=== PATIENT | female | born 1950 | race Caucasian/White ===

== ENCOUNTER → 2016-08-26 | Outpatient (CLI) | payer OTHER ==
[~2016-08-26] MED LIST: ASPI1TAB PO; ATOR1TAB21 PO; CALCTAB68 PO; CARV12.5 PO; COUM2.5T11 PO; GLIM2TAB PO; HYDR-3713 PO; LISI-538 PO; LORA10TA2 PO; METF-415 PO; MUPI2OI TOP; OMEP40CA2 PO; OSTETAB PO; PERC5TAB6 PO; SPIR25TA2 PO; TRAM50TA2 PO; VITA10002 PO; VITMTA PO; ZOFR20TA PO; ZOLP10TA2 PO
--- NOTE | 2016-08-26 13:46 | REPMRS ---
Patient History The patient states she has not had a clinical breast exam in over a year. Patient is postmenopausal. No known family history of cancer. Digital Woman Screen Mammo: August 26, 2016 - Exam #: [id number] Bilateral CC and MLO view(s) were taken. Technologist: Roxann Morales, Technologist Prior study comparison: August 12, 2015, digital woman screen mammo performed at [facility]. August 06, 2014, digital woman screen mammo performed at [facility]. September 12, 2013, digital woman screen mammo performed at [facility]. FINDINGS: There are scattered fibroglandular densities. There has been no change in the appearance of the mammogram from the prior studies. There is a mild amount of scattered fibroglandular density which is fairly symmetric. There is no interval development of dominant mass, architectural distortion, or clustered microcalcification suggestive of malignancy. ASSESSMENT: BI-RADS/ACR category 1 mammogram. Negative. Recommendation Routine screening mammogram in 1 year (for women over age 40). This mammogram was interpreted with the aid of an FDA-approved computer-aided dectection system. Electronically Signed By: Severiano Monroe MD 08/26/16 0714
== END ==
LOC: M WHC 12:53
PROVIDERS: ATTEND Family Medicine
DX: Z12.31 Encounter for screening mammogram for malignant neoplasm of breast (principal); Z78.0 Asymptomatic menopausal state

== ENCOUNTER → 2016-11-18 | Outpatient (REF) | payer OTHER ==
[2016-11-18 13:38] LABS: FREE T4 1.29 NG/DL (0.76-1.46); MAGNESIUM LEVEL 1.2 MG/DL (1.8-2.4); PERCENT SATURATION 15.7 % (13.2-37.4)
[2016-11-18 13:52] LABS: BASO % 0.5 % (0.0-1.0); EOS # 0.1 K/mm3 (0.0-0.50); EOS % 2.4 % (0.0-3.0); LARGE UNSTAINED CELL # 0.1 K/mm3 (0.0-0.4); LARGE UNSTAINED CELL % 2.1 % (0.0-4.0); LYMPH # 1.7 K/mm3 (1.5-4.5); LYMPH % 38.4 % (24.0-44.0); MEAN CORPUSCULAR HEMOGLOBIN 26.2 pg (27.0-33.0); MEAN CORPUSCULAR HGB CONC 32.3 g/dl (32.0-36.5); MEAN CORPUSCULAR VOLUME 81.2 fl (80.0-96.0); MONO # 0.2 K/mm3 (0.0-0.8); MONO % 5.2 % (0.0-5.0); NEUTROPHILS # 2.2 K/mm3 (1.8-7.7); NEUTROPHILS % 51.3 % (36.0-66.0); PLATELET COUNT, AUTOMATED 275 k/mm3 (150-450); RED CELL DISTRIBUTION WIDTH 13.2 % (11.5-14.5); WHITE BLOOD COUNT 4.3 K/mm3 (4.0-10.0)
== END ==
LOC: M SFHCPLAZ 10:59
PROVIDERS: ATTEND Family Medicine
DX: N18.3 Chronic kidney disease, stage 3 (moderate) (principal); E78.5 Hyperlipidemia, unspecified; E11.9 Type 2 diabetes mellitus without complications

== ENCOUNTER → 2016-12-09 | Outpatient (REF) | payer OTHER | LOC: M SFHCPLAZ 08:10 | PROVIDERS: ATTEND Family Medicine | DX: D50.9 Iron deficiency anemia, unspecified (principal); N18.3 Chronic kidney disease, stage 3 (moderate); E11.9 Type 2 diabetes mellitus without complications; Z53.8 Procedure and treatment not carried out for other reasons ==

== ENCOUNTER → 2017-04-14 | Outpatient (REF) | payer OTHER ==
[~2017-04-14] MED LIST changes: -COUM2.5T11 PO; +COUM2.5T17 PO; +PERC5TAB12 PO; -PERC5TAB6 PO
[2017-04-14 13:56] LABS: BASO % 0.6 % (0.0-1.0); EOS # 0.1 K/mm3 (0.0-0.50); EOS % 2.3 % (0.0-3.0); LARGE UNSTAINED CELL # 0.1 K/mm3 (0.0-0.4); LARGE UNSTAINED CELL % 2.1 % (0.0-4.0); LYMPH # 1.7 K/mm3 (1.5-4.5); MEAN CORPUSCULAR HEMOGLOBIN 28.9 pg (27.0-33.0); MEAN CORPUSCULAR HGB CONC 33.8 g/dl (32.0-36.5); MEAN CORPUSCULAR VOLUME 85.6 fl (80.0-96.0); MONO # 0.2 K/mm3 (0.0-0.8); MONO % 4.3 % (0.0-5.0); NEUTROPHILS # 2.5 K/mm3 (1.8-7.7); NEUTROPHILS % 53.7 % (36.0-66.0); PLATELET COUNT, AUTOMATED 264 k/mm3 (150-450); RED CELL DISTRIBUTION WIDTH 13.1 % (11.5-14.5); WHITE BLOOD COUNT 4.6 K/mm3 (4.0-10.0)
[2017-04-14 14:39] LABS: ALBUMIN/GLOBULIN RATIO 1.33 (1.00-1.93); BILIRUBIN,TOTAL 0.7 MG/DL (0.2-1.0); CALCIUM LEVEL 9.5 MG/DL (8.8-10.2); CREATININE FOR GFR 1.15 MG/DL (0.55-1.02); MAGNESIUM LEVEL 1.3 MG/DL (1.8-2.4); PERCENT SATURATION 40.6 % (13.2-45.0); POTASSIUM SERUM 4.4 MEQ/L (3.5-5.1)
== END ==
LOC: M SFHCPLAZ 10:55
PROVIDERS: ATTEND Family Medicine
DX: D50.9 Iron deficiency anemia, unspecified (principal); N18.3 Chronic kidney disease, stage 3 (moderate); E11.9 Type 2 diabetes mellitus without complications

== ENCOUNTER → 2017-08-08 | Outpatient (CLI) | payer OTHER | LOC: M WHC 13:01 | DX: Z12.31 Encounter for screening mammogram for malignant neoplasm of breast (principal) | CPT/HCPCS: 77067 ==

== ENCOUNTER → 2017-08-19 | Outpatient (REF) | payer OTHER ==
[2017-08-19 12:25] LABS: ALBUMIN 3.9 GM/DL (3.2-5.2); ALBUMIN/GLOBULIN RATIO 1.34 (1.00-1.93); ALKALINE PHOSPHATASE 71 U/L (45-117); ALT/SGPT 18 U/L (12-78); ANION GAP 7 MEQ/L (8-16); AST/SGOT 10 U/L (7-37); BILIRUBIN,TOTAL 0.4 MG/DL (0.2-1.0); BLOOD UREA NITROGEN 17 MG/DL (7-18); C REACTIVE PROTEIN QUANTITATIV < 0.30 MG/DL (0.00-0.30); CALCIUM LEVEL 9.3 MG/DL (8.8-10.2); CARBON DIOXIDE LEVEL 30 MEQ/L (21-32); CHLORIDE LEVEL 104 MEQ/L (98-107); CHOLESTEROL LEVEL 132 MG/DL (<200); CHOLESTEROL RISK RATIO 2.237 (<5); CPK CREATINE PHOSPHOKINASE 37 U/L (26-192); CREATININE FOR GFR 1.15 MG/DL (0.55-1.02); FREE T4 1.26 NG/DL (0.76-1.46); GLOMERULAR FILTRATION RATE 49.8 (>45); GLUCOSE, FASTING 149 MG/DL (80-110); HDL CHOLESTEROL 59 MG/DL (>40); NON-HDL-C 73 MG/DL; POTASSIUM SERUM 4.7 MEQ/L (3.5-5.1); SODIUM LEVEL 141 MEQ/L (136-145); THYROID STIMULATING HORMONE 0.447 uIU/ML (0.358-3.740); TOTAL PROTEIN 6.8 GM/DL (6.4-8.2); TRIGLYCERIDES LEVEL 115 MG/DL (<150)
[2017-08-19 13:11] LABS: ESTIMATED AVERAGE GLUCOSE 177 MG/DL (60-110); HEMOGLOBIN A1c 7.8 %
[2017-08-19 15:07] LABS: TOTAL 25(OH) VITAMIN D 55.1 NG/ML (30.0-100.0)
[2017-08-19 15:08] LABS: PTH INTACT 50.6 PG/ML (14.0-72.0)
== END ==
LOC: M SFHCPLAZ 09:51
DX: E78.5 Hyperlipidemia, unspecified (principal); E11.9 Type 2 diabetes mellitus without complications; E55.9 Vitamin D deficiency, unspecified
CPT/HCPCS: 82550

== ENCOUNTER → 2017-12-14 | Outpatient (REF) | payer OTHER ==
[2017-12-14 12:40] LABS: BASO % 0.7 % (0.0-1.0); EOS # 0.2 10^3/uL (0.0-0.50); EOS % 4.7 % (0.0-3.0); HEMOGLOBIN 13.8 g/dl (12.0-15.5); IMMATURE GRANULOCYTE % 0.2 % (0-3.0); LYMPH # 1.6 10^3/uL (1.5-4.5); LYMPH % 38.2 % (24.0-44.0); MEAN CORPUSCULAR HEMOGLOBIN 29.1 pg (27.0-33.0); MEAN CORPUSCULAR HGB CONC 33.7 g/dl (32.0-36.5); MEAN CORPUSCULAR VOLUME 86.5 fl (80.0-96.0); MONO # 0.3 10^3/uL (0.0-0.8); MONO % 7.5 % (0.0-5.0); NEUTROPHILS # 2.1 10^3/uL (1.8-7.7); NEUTROPHILS % 48.7 % (36.0-66.0); PLATELET COUNT, AUTOMATED 237 10^3/uL (150-450); RED BLOOD COUNT 4.74 10^6/uL (4.00-5.40); RED CELL DISTRIBUTION WIDTH 12.9 % (11.5-14.5); RETIC HEMOGLOBIN EQUIVALENT 34.9 pg (24-36); RETICULOCYTE # 92.9 10^9/L (17-77); WHITE BLOOD COUNT 4.3 10^3/uL (4.0-10.0)
[2017-12-14 13:02] LABS: ALBUMIN 3.9 GM/DL (3.2-5.2); ALKALINE PHOSPHATASE 71 U/L (45-117); ALT/SGPT 22 U/L (12-78); ANION GAP 6 MEQ/L (8-16); AST/SGOT 12 U/L (7-37); BILIRUBIN,TOTAL 0.6 MG/DL (0.2-1.0); BLOOD UREA NITROGEN 15 MG/DL (7-18); CALCIUM LEVEL 9.5 MG/DL (8.8-10.2); CARBON DIOXIDE LEVEL 29 MEQ/L (21-32); CHLORIDE LEVEL 107 MEQ/L (98-107); CREATININE FOR GFR 1.22 MG/DL (0.55-1.30); FERRITIN 34 NG/ML (8-252); FREE T3 2.9 PG/ML (2.2-4.0); FREE T4 1.25 NG/DL (0.76-1.46); GLOMERULAR FILTRATION RATE 46.5 (>45); GLUCOSE, FASTING 212 MG/DL (70-100); MAGNESIUM LEVEL 1.4 MG/DL (1.8-2.4); POTASSIUM SERUM 4.6 MEQ/L (3.5-5.1); SODIUM LEVEL 142 MEQ/L (136-145); THYROID STIMULATING HORMONE 0.558 uIU/ML (0.358-3.740); TOTAL PROTEIN 6.5 GM/DL (6.4-8.2)
== END ==
LOC: M SFHCPLAZ 08:59
DX: D50.9 Iron deficiency anemia, unspecified (principal); E05.90 Thyrotoxicosis, unspecified without thyrotoxic crisis or storm
CPT/HCPCS: 83735

== ENCOUNTER → 2018-05-18 | Outpatient (REF) | payer OTHER ==
[2018-05-18 12:52] LABS: APPEARANCE, URINE CLEAR (CLEAR); BACTERIA, URINE AUTO NEGATIVE (NEGATIVE); BILIRUBIN, URINE AUTO NEGATIVE (NEGATIVE); BLOOD, URINE BLOOD NEGATIVE (NEGATIVE); COLOR, URINE YELLOW (YELLOW); GLUCOSE, URINE (UA) AUTO NEGATIVE (NEGATIVE); KETONE, URINE AUTO NEGATIVE (NEGATIVE); LEUKOCYTE ESTERASE, URINE AUTO NEGATIVE (NEGATIVE); NITRITE, URINE AUTO NEGATIVE (NEGATIVE); PROTEIN, URINE AUTO NEGATIVE (NEGATIVE); RBC, URINE AUTO 0 /HPF (0-3); SPECIFIC GRAVITY URINE AUTO 1.004 (1.002-1.035); SQUAMOUS EPITHELIAL CELL UR AU 0 /HPF (0-6); UROBILINOGEN, URINE AUTO 0.2 mg/dL (0.0-2.0); WBC, URINE AUTO 0 /HPF (0-3)
[2018-05-18 13:10] LABS: ALBUMIN 3.9 GM/DL (3.2-5.2); ALKALINE PHOSPHATASE 72 U/L (45-117); ALT/SGPT 28 U/L (12-78); ANION GAP 8 MEQ/L (8-16); AST/SGOT 16 U/L (7-37); BILIRUBIN,TOTAL 0.8 MG/DL (0.2-1.0); BLOOD UREA NITROGEN 15 MG/DL (7-18); C REACTIVE PROTEIN QUANTITATIV < 0.30 MG/DL (0.00-0.30); CALCIUM LEVEL 9.1 MG/DL (8.8-10.2); CARBON DIOXIDE LEVEL 27 MEQ/L (21-32); CHLORIDE LEVEL 104 MEQ/L (98-107); CHOLESTEROL LEVEL 129 MG/DL (<200); CHOLESTEROL RISK RATIO 2.388 (<5); CPK CREATINE PHOSPHOKINASE 59 U/L (26-192); CREATININE FOR GFR 1.27 MG/DL (0.55-1.30); FREE T4 1.31 NG/DL (0.76-1.46); GLOMERULAR FILTRATION RATE 44.3 (>39); GLUCOSE, FASTING 236 MG/DL (70-100); HDL CHOLESTEROL 54 MG/DL (>40); LDL CHOLESTEROL 42 MG/DL (<100); MAGNESIUM LEVEL 1.1 MG/DL (1.8-2.4); NON-HDL-C 75 MG/DL; POTASSIUM SERUM 4.6 MEQ/L (3.5-5.1); SODIUM LEVEL 139 MEQ/L (136-145); THYROID STIMULATING HORMONE 0.552 uIU/ML (0.358-3.740); TOTAL PROTEIN 6.5 GM/DL (6.4-8.2); TRIGLYCERIDES LEVEL 166 MG/DL (<150)
[2018-05-18 13:30] LABS: CREATININE, URINE 44.3 MG/DL; MALB URINE SIEMENS < 5.0 MG/L
[2018-05-18 13:36] LABS: MAU/CREAT RATIO 11.3 MCG/MG (0.0-30.0)
[2018-05-18 13:50] LABS: ESTIMATED AVERAGE GLUCOSE 180 MG/DL (60-110); HEMOGLOBIN A1c 7.9 %
[2018-05-19 11:21] LABS: THYROID PEROXIDASE ANTIBODY 30.8 U/ML (<60.0)
== END ==
LOC: M SFHCPLAZ 10:09
DX: E11.9 Type 2 diabetes mellitus without complications (principal); E05.90 Thyrotoxicosis, unspecified without thyrotoxic crisis or storm
CPT/HCPCS: 82550

== ENCOUNTER → 2018-08-14 | Outpatient (CLI) | payer MEDICARE ==
[~2018-08-14] MED LIST changes: -LORA10TA2 PO; +LORA10TA3 PO; +SPIR-10 PO; -SPIR25TA2 PO; -ZOFR20TA PO; +ZOFR4TAB16 PO
--- NOTE | 2018-08-14 19:12 | REPMRS ---
Patient History The patient states she has not had a clinical breast exam in over a year. Patient is postmenopausal. No known family history of cancer. Digital Woman Screen Mammo: August 14, 2018 - Exam #: [id number] Bilateral CC and MLO view(s) were taken. Technologist: Melinda Wallace, Technologist Prior study comparison: August 08, 2017, digital woman screen mammo performed at [facility]. August 26, 2016, digital woman screen mammo performed at [facility]. August 12, 2015, digital woman screen mammo performed at [facility]. FINDINGS: There are scattered fibroglandular densities. There has been no change in the appearance of the mammogram from the prior studies. There is a mild amount of scattered fibroglandular density which is fairly symmetric. There is no interval development of dominant mass, architectural distortion, or clustered microcalcification suggestive of malignancy. 3-D tomosynthesis shows no additional findings. Assessment: BI-RADS/ACR category 1 mammogram. Negative. Recommendation Routine screening mammogram of both breasts in 1 year (for women over age 40). This patient's Lifetime Breast Cancer RIsk is estimated at 4.5 %. This mammogram was interpreted with the aid of an FDA-approved computer-aided dectection system. Electronically Signed By: Severiano Monroe MD 08/14/181911
== END ==
LOC: M WHC 14:20
PROVIDERS: ATTEND Family Medicine
DX: Z12.31 Encounter for screening mammogram for malignant neoplasm of breast (principal); Z78.0 Asymptomatic menopausal state

== ENCOUNTER → 2018-10-24 | Outpatient (REF) | payer MEDICARE ==
[2018-10-24 11:46] LABS: BASO % 0.8 % (0.0-1.0); EOS # 0.2 10^3/uL (0.0-0.50); EOS % 4.6 % (0.0-3.0); HEMATOCRIT 39.5 % (36.0-47.0); HEMOGLOBIN 12.9 g/dl (12.0-15.5); LYMPH # 1.5 10^3/uL (1.5-4.5); LYMPH % 30.8 % (24.0-44.0); MEAN CORPUSCULAR HEMOGLOBIN 28.7 pg (27.0-33.0); MEAN CORPUSCULAR HGB CONC 32.7 g/dl (32.0-36.5); MONO # 0.3 10^3/uL (0.0-0.8); MONO % 6.5 % (0.0-5.0); NEUTROPHILS # 2.8 10^3/uL (1.8-7.7); NEUTROPHILS % 57.1 % (36.0-66.0); PLATELET COUNT, AUTOMATED 249 10^3/uL (150-450); RED BLOOD COUNT 4.49 10^6/uL (4.00-5.40)
[2018-10-24 12:02] LABS: CALCIUM LEVEL 9.7 MG/DL (8.8-10.2); CREATININE FOR GFR 1.29 MG/DL (0.55-1.30); GLOMERULAR FILTRATION RATE 43.5 (>39); POTASSIUM SERUM 4.7 MEQ/L (3.5-5.1)
[2018-10-24 12:03] LABS: ALBUMIN 3.8 GM/DL (3.2-5.2); BILIRUBIN,TOTAL 0.6 MG/DL (0.2-1.0); MAGNESIUM LEVEL 1.4 MG/DL (1.8-2.4); TOTAL PROTEIN 6.4 GM/DL (6.4-8.2)
[2018-10-24 12:14] LABS: HEMOGLOBIN A1c 6.6 %
== END ==
LOC: M SFHCPLAZ 09:04
PROVIDERS: ATTEND Family Medicine
DX: E53.8 Deficiency of other specified B group vitamins (principal); I10 Essential (primary) hypertension; E11.9 Type 2 diabetes mellitus without complications

== ENCOUNTER → 2019-03-15 | Outpatient (REF) | payer MEDICARE ==
[~2019-03-15] MED LIST changes: -ASPI1TAB PO; +ASPI81TA26 PO; +CYAN100049 PO; -GLIM2TAB PO; +GLIM2TAB4 PO; +MUPI1OIN2 TOP; -MUPI2OI TOP; -OMEP40CA2 PO; +OMEP40CA97 PO; -VITA10002 PO
[2019-03-15 12:35] LABS: BASO % 0.8 % (0.0-1.0); EOS # 0.1 10^3/uL (0.0-0.50); EOS % 2.8 % (0.0-3.0); HEMATOCRIT 39.1 % (36.0-47.0); HEMOGLOBIN 13.1 g/dl (12.0-15.5); LYMPH # 1.5 10^3/uL (1.5-4.5); LYMPH % 37.4 % (24.0-44.0); MEAN CORPUSCULAR HEMOGLOBIN 29.5 pg (27.0-33.0); MEAN CORPUSCULAR HGB CONC 33.5 g/dl (32.0-36.5); MEAN CORPUSCULAR VOLUME 88.1 fl (80.0-96.0); MONO # 0.3 10^3/uL (0.0-0.8); MONO % 7.9 % (0.0-5.0); NEUTROPHILS % 50.6 % (36.0-66.0); PLATELET COUNT, AUTOMATED 206 10^3/uL (150-450); RED BLOOD COUNT 4.44 10^6/uL (4.00-5.40); WHITE BLOOD COUNT 3.9 10^3/uL (4.0-10.0)
[2019-03-15 14:44] LABS: HEMOGLOBIN A1c 6.5 %
[2019-03-15 16:23] LABS: ALBUMIN 3.6 GM/DL (3.2-5.2); BILIRUBIN,TOTAL 0.6 MG/DL (0.2-1.0); CALCIUM LEVEL 9.4 MG/DL (8.8-10.2); CREATININE FOR GFR 1.21 MG/DL (0.55-1.30); FREE T4 1.39 NG/DL (0.76-1.46); GLOMERULAR FILTRATION RATE 46.8 (>39); POTASSIUM SERUM 4.3 MEQ/L (3.5-5.1); THYROID STIMULATING HORMONE 0.643 uIU/ML (0.358-3.740); TOTAL PROTEIN 6.3 GM/DL (6.4-8.2)
[2019-03-15 17:10] LABS: PTH INTACT 35.8 PG/ML (18.5-88.0); TOTAL 25(OH) VITAMIN D 60.3 NG/ML (30.0-100.0)
== END ==
LOC: M SFHCPLAZ 09:27
PROVIDERS: ATTEND Family Medicine
DX: N18.3 Chronic kidney disease, stage 3 (moderate) (principal); E55.9 Vitamin D deficiency, unspecified; E11.9 Type 2 diabetes mellitus without complications

== ENCOUNTER → 2019-05-09 | Outpatient (CLI) | payer MEDICARE ==
[~2019-05-09] MED LIST changes: +GLIM2TAB2 PO; -GLIM2TAB4 PO
== END ==
LOC: M WHC 13:21
PROVIDERS: ATTEND Family Medicine
DX: E55.9 Vitamin D deficiency, unspecified (principal)

== ENCOUNTER → 2019-09-04 | Outpatient (CLI) | payer MEDICARE ==
[~2019-09-04] MED LIST changes: -GLIM2TAB2 PO; +GLIM2TAB4 PO
[2019-09-04 09:55] LABS: BASO % 0.7 % (0.0-1.0); EOS # 0.2 10^3/uL (0.0-0.5); EOS % 4.8 % (0.0-3.0); HEMATOCRIT 41.8 % (36.0-47.0); HEMOGLOBIN 13.4 g/dl (12.0-15.5); LYMPH # 1.6 10^3/uL (1.5-5.0); LYMPH % 38.7 % (24.0-44.0); MEAN CORPUSCULAR HEMOGLOBIN 28.6 pg (27.0-33.0); MEAN CORPUSCULAR HGB CONC 32.1 g/dl (32.0-36.5); MEAN CORPUSCULAR VOLUME 89.1 fl (80.0-96.0); MONO # 0.4 10^3/uL (0.0-0.8); MONO % 9.1 % (0.0-5.0); NEUTROPHILS % 46.5 % (36.0-66.0); PLATELET COUNT, AUTOMATED 202 10^3/uL (150-450); RED BLOOD COUNT 4.69 10^6/uL (4.00-5.40); WHITE BLOOD COUNT 4.2 10^3/uL (4.0-10.0)
[2019-09-04 10:24] LABS: ALBUMIN 3.7 GM/DL (3.2-5.2); BILIRUBIN,TOTAL 0.5 MG/DL (0.2-1.0); CALCIUM LEVEL 9.2 MG/DL (8.8-10.2); CREATININE FOR GFR 1.11 MG/DL (0.55-1.30); FREE T4 1.46 NG/DL (0.76-1.46); GLOMERULAR FILTRATION RATE 51.6 (>39); MAGNESIUM LEVEL 1.3 MG/DL (1.8-2.4); POTASSIUM SERUM 4.5 MEQ/L (3.5-5.1); THYROID STIMULATING HORMONE 0.537 uIU/ML (0.358-3.740); TOTAL PROTEIN 6.5 GM/DL (6.4-8.2)
== END ==
LOC: M PLALAB 08:27
PROVIDERS: ATTEND Family Medicine
DX: E53.8 Deficiency of other specified B group vitamins (principal); E11.9 Type 2 diabetes mellitus without complications; E78.5 Hyperlipidemia, unspecified

== ENCOUNTER → 2019-09-05 | Outpatient (CLI) | payer MEDICARE ==
--- NOTE | 2019-09-05 12:51 | REPMRS ---
Patient History The patient states she has not had a clinical breast exam in over a year. No known family history of cancer. Digital Woman Screen Mammo: September 05, 2019 - Exam #: [id number] Bilateral CC and MLO view(s) were taken. Technologist: Naila Sherman, Technologist Prior study comparison: August 14, 2018, bilateral digital woman screen mammo performed at [facility]. August 08, 2017, digital woman screen mammo performed at [facility]. August 26, 2016, digital woman screen mammo performed at [facility]. FINDINGS: There are scattered fibroglandular densities. There has been no change in the appearance of the mammogram from the prior studies. There is a mild amount of scattered fibroglandular density which is fairly symmetric. There is no interval development of dominant mass, architectural distortion, or grouped microcalcification suggestive of malignancy. 3-D tomosynthesis shows no additional findings. Assessment: BI-RADS/ACR category 1 mammogram. Negative Mammogram. Recommendation Routine screening mammogram of both breasts in 1 year (for women over age 40). This patient's Lifetime Breast Cancer Risk is estimated at 4.3 %. This mammogram was interpreted with the aid of an FDA-approved computer-aided dectection system. Electronically Signed By: Severiano Monroe MD 09/05/19 [id number]
== END ==
LOC: M WHC 11:30
PROVIDERS: ATTEND Family Medicine
DX: Z12.31 Encounter for screening mammogram for malignant neoplasm of breast (principal)

== ENCOUNTER → 2020-01-16 | Outpatient (CLI) | payer MEDICARE ==
[~2020-01-16] MED LIST changes: -LISI-538 PO; +LISI20TA33 PO
[2020-01-16 13:09] LABS: BASO % 0.8 % (0.0-1.0); EOS # 0.2 10^3/uL (0.0-0.5); EOS % 3.8 % (0.0-3.0); HEMATOCRIT 41.3 % (36.0-47.0); HEMOGLOBIN 13.4 g/dl (12.0-15.5); LYMPH # 1.4 10^3/uL (1.5-5.0); LYMPH % 34.7 % (24.0-44.0); MEAN CORPUSCULAR HEMOGLOBIN 29.1 pg (27.0-33.0); MEAN CORPUSCULAR HGB CONC 32.4 g/dl (32.0-36.5); MEAN CORPUSCULAR VOLUME 89.8 fl (80.0-96.0); MONO # 0.3 10^3/uL (0.0-0.8); MONO % 7.8 % (0.0-5.0); NEUTROPHILS # 2.1 10^3/uL (1.5-8.5); NEUTROPHILS % 52.6 % (36.0-66.0); PLATELET COUNT, AUTOMATED 217 10^3/uL (150-450)
[2020-01-16 13:24] LABS: ALBUMIN 3.6 GM/DL (3.2-5.2); BILIRUBIN,TOTAL 0.5 MG/DL (0.2-1.0); CALCIUM LEVEL 8.8 MG/DL (8.8-10.2); CHOLESTEROL RISK RATIO 2.403 (<5); CREATININE FOR GFR 1.15 MG/DL (0.55-1.30); GLOMERULAR FILTRATION RATE 49.5 (>39); MAGNESIUM LEVEL 1.3 MG/DL (1.8-2.4); POTASSIUM SERUM 4.6 MEQ/L (3.5-5.1); TOTAL PROTEIN 6.2 GM/DL (6.4-8.2)
[2020-01-16 15:22] LABS: HEMOGLOBIN A1c 6.8 %
== END ==
LOC: M PLALAB 09:03
PROVIDERS: ATTEND Family Medicine
DX: E11.22 Type 2 diabetes mellitus with diabetic chronic kidney disease (principal); D50.9 Iron deficiency anemia, unspecified; N18.3 Chronic kidney disease, stage 3 (moderate)

== ENCOUNTER → 2020-06-30 | Outpatient (REF) | payer MEDICARE ==
[~2020-06-30] MED LIST changes: +LISI-538 PO; -LISI20TA33 PO
[2020-06-30 11:04] LABS: BASO % 0.9 % (0.0-1.0); EOS # 0.1 10^3/uL (0.0-0.5); EOS % 3.1 % (0.0-3.0); HEMATOCRIT 40.6 % (36.0-47.0); LYMPH # 1.3 10^3/uL (1.5-5.0); LYMPH % 36.6 % (24.0-44.0); MEAN CORPUSCULAR HEMOGLOBIN 28.4 pg (27.0-33.0); MEAN CORPUSCULAR VOLUME 88.6 fl (80.0-96.0); MONO # 0.2 10^3/uL (0.0-0.8); MONO % 6.5 % (0.0-5.0); NEUTROPHILS # 1.9 10^3/uL (1.5-8.5); NEUTROPHILS % 52.6 % (36.0-66.0); PLATELET COUNT, AUTOMATED 198 10^3/uL (150-450); RED BLOOD COUNT 4.58 10^6/uL (4.00-5.40); WHITE BLOOD COUNT 3.5 10^3/uL (4.0-10.0)
[2020-06-30 11:33] LABS: ALBUMIN 3.4 GM/DL (3.2-5.2); BILIRUBIN,TOTAL 0.5 MG/DL (0.2-1.0); CALCIUM LEVEL 8.5 MG/DL (8.8-10.2); CREATININE FOR GFR 1.29 MG/DL (0.55-1.30); GLOMERULAR FILTRATION RATE 43.2 (>39); MAGNESIUM LEVEL 1.2 MG/DL (1.8-2.4); POTASSIUM SERUM 4.7 MEQ/L (3.5-5.1); TOTAL PROTEIN 6.1 GM/DL (6.4-8.2)
== END ==
LOC: M PLALAB 08:35
PROVIDERS: ATTEND Family Medicine
DX: E11.9 Type 2 diabetes mellitus without complications (principal)

== ENCOUNTER → 2020-09-08 | Outpatient (CLI) | payer MEDICARE ==
[~2020-09-08] MED LIST changes: -LISI-538 PO; +LISI20TA33 PO
--- NOTE | 2020-09-08 12:19 | REPMRS ---
Patient History The patient states she has not had a clinical breast exam in over a year. No known family history of cancer. Digital Woman Screen Mammo: September 08, 2020 - Exam #: [id number] Bilateral CC and MLO view(s) were taken. Technologist: Melinda Wallace, Technologist Prior study comparison: September 05, 2019, bilateral digital woman screen mammo performed at [facility]. August 14, 2018, bilateral digital woman screen mammo performed at [facility]. August 08, 2017, digital woman screen mammo performed at [facility]. FINDINGS: The breast tissue is almost entirely fat. The Volpara volumetric breast density category is: A. There has been no change in the appearance of the mammogram from the prior studies. There is no interval development of dominant mass, architectural distortion, or grouped microcalcification typical of malignancy. 3-D tomosynthesis shows no additional findings. Assessment: BI-RADS/ACR category 1 mammogram. Negative Mammogram. Recommendation Routine screening mammogram of both breasts in 1 year (for women over age 40). This patient's [facility] Lifetime Breast Cancer RIsk is estimated at 4.0 %. This mammogram was interpreted with the aid of an FDA-approved computer-aided dectection system. Electronically Signed By: Severiano Monroe MD 09/08/20 6482
== END ==
LOC: M WHC 10:58
PROVIDERS: ATTEND Family Medicine
DX: Z12.31 Encounter for screening mammogram for malignant neoplasm of breast (principal)

== ENCOUNTER → 2020-12-01 | Outpatient (REF) | payer MEDICARE ==
[2020-12-01 15:42] LABS: ALBUMIN 3.8 GM/DL (3.2-5.2); BILIRUBIN,TOTAL 0.5 MG/DL (0.2-1.0); CALCIUM LEVEL 9.6 MG/DL (8.8-10.2); CHOLESTEROL RISK RATIO 2.333 (<5); CREATININE FOR GFR 1.13 MG/DL (0.55-1.30); FREE T4 1.3 NG/DL (0.76-1.46); GLOMERULAR FILTRATION RATE 50.4 (>39); POTASSIUM SERUM 4.3 MEQ/L (3.5-5.1); PTH INTACT 45.8 PG/ML (18.5-88.0); THYROID STIMULATING HORMONE 0.649 uIU/ML (0.358-3.740); TOTAL 25(OH) VITAMIN D 56.8 NG/ML (30.0-100.0); TOTAL PROTEIN 6.2 GM/DL (6.4-8.2)
[2020-12-01 17:20] LABS: HEMOGLOBIN A1c 6.2 %
== END ==
LOC: M PLALAB 09:26
PROVIDERS: ATTEND Family Medicine
DX: E55.9 Vitamin D deficiency, unspecified (principal); E11.9 Type 2 diabetes mellitus without complications

== ENCOUNTER → 2021-05-06 | Outpatient (CLI) | payer MEDICARE ==
[~2021-05-06] MED LIST changes: +OMEP40CA4 PO; -OMEP40CA97 PO
[2021-05-06 13:59] LABS: BASO % 0.7 % (0.0-1.0); EOS # 0.1 10^3/uL (0.0-0.5); EOS % 2.6 % (0.0-3.0); HEMOGLOBIN 14.4 g/dl (12.0-15.5); LYMPH # 1.7 10^3/uL (1.5-5.0); LYMPH % 31.1 % (24.0-44.0); MEAN CORPUSCULAR HEMOGLOBIN 29.2 pg (27.0-33.0); MEAN CORPUSCULAR HGB CONC 33.5 g/dl (32.0-36.5); MEAN CORPUSCULAR VOLUME 87.2 fl (80.0-96.0); MONO # 0.4 10^3/uL (0.0-0.8); MONO % 7.9 % (2.0-8.0); NEUTROPHILS # 3.1 10^3/uL (1.5-8.5); NEUTROPHILS % 57.5 % (36.0-66.0); PLATELET COUNT, AUTOMATED 215 10^3/uL (150-450); RED BLOOD COUNT 4.93 10^6/uL (4.00-5.40); WHITE BLOOD COUNT 5.4 10^3/uL (4.0-10.0)
[2021-05-06 16:22] LABS: FERRITIN 88 NG/ML (8-252)
[2021-05-06 16:24] LABS: VITAMIN B12 LEVEL 515 PG/ML (247-911)
[2021-05-06 16:30] LABS: MALB URINE SIEMENS 90.6 MG/L; MAU/CREAT RATIO 24.6 MCG/MG (0.0-30.0)
[2021-05-06 18:36] LABS: HEMOGLOBIN A1c 6.1 %
== END ==
LOC: M PLALAB 09:27
PROVIDERS: ATTEND Family Medicine
DX: D50.9 Iron deficiency anemia, unspecified (principal); Z79.899 Other long term (current) drug therapy

== ENCOUNTER → 2021-09-09 | Outpatient (CLI) | payer MEDICARE | LOC: M WHC 11:25 | PROVIDERS: ATTEND Family Medicine | DX: Z12.31 Encounter for screening mammogram for malignant neoplasm of breast (principal); Z13.820 Encounter for screening for osteoporosis; M85.89 Other specified disorders of bone density and structure, multiple sites ==

== ENCOUNTER → 2021-09-11 | Outpatient (CLI) | payer MEDICARE ==
[2021-09-11 10:23] LABS: BASO % 0.6 % (0.0-1.0); EOS # 0.2 10^3/uL (0.0-0.5); EOS % 3.2 % (0.0-3.0); HEMATOCRIT 40.1 % (36.0-47.0); HEMOGLOBIN 13.2 g/dl (12.0-15.5); LYMPH # 1.5 10^3/uL (1.5-5.0); LYMPH % 32.5 % (24.0-44.0); MEAN CORPUSCULAR HEMOGLOBIN 29.1 pg (27.0-33.0); MEAN CORPUSCULAR HGB CONC 32.9 g/dl (32.0-36.5); MEAN CORPUSCULAR VOLUME 88.5 fl (80.0-96.0); MONO # 0.4 10^3/uL (0.0-0.8); MONO % 7.8 % (2.0-8.0); NEUTROPHILS # 2.6 10^3/uL (1.5-8.5); NEUTROPHILS % 55.7 % (36.0-66.0); PLATELET COUNT, AUTOMATED 221 10^3/uL (150-450); RED BLOOD COUNT 4.53 10^6/uL (4.00-5.40); WHITE BLOOD COUNT 4.6 10^3/uL (4.0-10.0)
[2021-09-11 10:48] LABS: HEMOGLOBIN A1c 6.5 %
[2021-09-11 11:04] LABS: ALBUMIN 3.5 GM/DL (3.2-5.2); BILIRUBIN,TOTAL 0.4 MG/DL (0.2-1.0); C REACTIVE PROTEIN QUANTITATIV 0.3 MG/DL (0.00-0.30); CALCIUM LEVEL 9.1 MG/DL (8.8-10.2); CHOLESTEROL RISK RATIO 2.38 (<5); CREATININE FOR GFR 1.16 MG/DL (0.55-1.30); FREE T4 1.36 NG/DL (0.76-1.46); GLOMERULAR FILTRATION RATE 48.8 (>39); POTASSIUM SERUM 4.7 MEQ/L (3.5-5.1); THYROID STIMULATING HORMONE 0.83 uIU/ML (0.358-3.740); TOTAL PROTEIN 6.3 GM/DL (6.4-8.2)
[2021-09-11 11:32] LABS: MAGNESIUM LEVEL 1.3 MG/DL (1.8-2.4)
== END ==
LOC: M PLALAB 08:22
PROVIDERS: ATTEND Family Medicine
DX: D50.9 Iron deficiency anemia, unspecified (principal); E11.9 Type 2 diabetes mellitus without complications

== ENCOUNTER 2021-10-01 12:42 | Outpatient (CLI) | payer MEDICARE ==
[~2021-10-01] VITALS: Ht 165.1 cm; Wt 105.2 kg
[2021-10-01 12:50] VITALS: BP 147/77
[2021-10-01] MEDS ORDERED: ZOLEDRONIC ACID 5 MG in IV 1 EA IV ONE (13:00)
[2021-10-01 14:00] VITALS: BP 148/78
== END 2021-10-01 14:05 | disposition home or self-care (01) ==
LOC: M INFU 12:42
PROVIDERS: ATTEND Family Medicine
DX: M85.9 Disorder of bone density and structure, unspecified (principal)
CPT/HCPCS: 96365; J3489

== ENCOUNTER → 2022-02-11 | Outpatient (CLI) | payer MEDICARE ==
[2022-02-11 10:36] LABS: BASO % 0.6 % (0.0-1.0); EOS # 0.1 10^3/uL (0.0-0.5); EOS % 3.2 % (0.0-3.0); HEMATOCRIT 40.9 % (36.0-47.0); HEMOGLOBIN 13.4 g/dl (12.0-15.5); LYMPH # 1.3 10^3/uL (1.5-5.0); LYMPH % 37.6 % (24.0-44.0); MEAN CORPUSCULAR HEMOGLOBIN 28.6 pg (27.0-33.0); MEAN CORPUSCULAR HGB CONC 32.8 g/dl (32.0-36.5); MEAN CORPUSCULAR VOLUME 87.4 fl (80.0-96.0); MONO # 0.3 10^3/uL (0.0-0.8); MONO % 8.4 % (2.0-8.0); NEUTROPHILS # 1.7 10^3/uL (1.5-8.5); NEUTROPHILS % 49.9 % (36.0-66.0); PLATELET COUNT, AUTOMATED 208 10^3/uL (150-450); RED BLOOD COUNT 4.68 10^6/uL (4.00-5.40); WHITE BLOOD COUNT 3.5 10^3/uL (4.0-10.0)
[2022-02-11 11:02] LABS: HEMOGLOBIN A1c 6.4 %
[2022-02-11 11:45] LABS: ALBUMIN 3.6 GM/DL (3.2-5.2); BILIRUBIN,TOTAL 0.7 MG/DL (0.2-1.0); CALCIUM LEVEL 9.4 MG/DL (8.8-10.2); CREATININE FOR GFR 1.24 MG/DL (0.55-1.30); GLOMERULAR FILTRATION RATE 45.1 (>39); MAGNESIUM LEVEL 1.1 MG/DL (1.8-2.4); POTASSIUM SERUM 4.4 MEQ/L (3.5-5.1); TOTAL PROTEIN 6.1 GM/DL (6.4-8.2)
[2022-02-12 19:07] LABS: INSULIN LEVEL 4.9 uIU/mL (2.6-24.9); TISSUE TRANSGLUTAMINASE IgA <2 U/mL (0-3)
== END ==
LOC: M PLALAB 08:41
PROVIDERS: ATTEND Family Medicine
DX: D50.9 Iron deficiency anemia, unspecified (principal); E11.9 Type 2 diabetes mellitus without complications; E53.8 Deficiency of other specified B group vitamins; I47.1 Supraventricular tachycardia; M85.80 Other specified disorders of bone density and structure, unspecified site

== ENCOUNTER → 2022-03-05 | Outpatient (CLI) | payer MEDICARE | LOC: M PLALAB 15:13 | PROVIDERS: ATTEND Physician Assistant | DX: S92.515A Nondisplaced fracture of proximal phalanx of left lesser toe(s), initial encounter for closed fracture (principal); W22.03XA Walked into furniture, initial encounter; Y92.9 Unspecified place or not applicable; Y93.9 Activity, unspecified; Y99.9 Unspecified external cause status ==

== ENCOUNTER → 2022-06-01 | Outpatient (CLI) | payer MEDICARE | LOC: M PLALAB 10:24 | PROVIDERS: ATTEND Family Medicine | DX: M47.816 Spondylosis without myelopathy or radiculopathy, lumbar region (principal) ==

== ENCOUNTER → 2022-06-08 | Outpatient (CLI) | payer MEDICARE | LOC: M RAD 11:31 | PROVIDERS: ATTEND Physician Assistant | DX: M79.605 Pain in left leg (principal); M79.89 Other specified soft tissue disorders ==

== ENCOUNTER → 2022-06-29 | Outpatient (CLI) | payer MEDICARE | LOC: M PLAIMG 06:59 | PROVIDERS: ATTEND Physician Assistant | DX: M51.36 Other intervertebral disc degeneration, lumbar region (principal); M51.37 Other intervertebral disc degeneration, lumbosacral region; M51.26 Other intervertebral disc displacement, lumbar region; M51.27 Other intervertebral disc displacement, lumbosacral region; M48.062 Spinal stenosis, lumbar region with neurogenic claudication; M79.605 Pain in left leg; M79.89 Other specified soft tissue disorders; M47.816 Spondylosis without myelopathy or radiculopathy, lumbar region ==

== ENCOUNTER → 2022-07-08 | Outpatient (CLI) | payer MEDICARE ==
[2022-07-08 12:23] LABS: MAGNESIUM LEVEL 1.3 MG/DL (1.8-2.4)
[2022-07-08 12:24] LABS: ALBUMIN 3.4 G/DL (3.2-5.2); CALCIUM LEVEL 9.1 MG/DL (8.3-10.6); CREATININE FOR GFR 1.09 MG/DL (0.55-1.30); GLOMERULAR FILTRATION RATE 52.2 (>39); PHOSPHORUS LEVEL 3.6 MG/DL (2.4-5.1); POTASSIUM SERUM 4.9 MMOL/L (3.5-5.1)
[2022-07-08 12:25] LABS: PTH INTACT 67.7 PG/ML (18.5-88.0)
[2022-07-08 12:26] LABS: FREE T4 1.51 NG/DL (0.89-1.76); THYROID STIMULATING HORMONE 0.758 uIU/ML (0.55-4.78); TOTAL 25(OH) VITAMIN D 58.5 NG/ML (20.0-100.0)
[2022-07-08 13:42] LABS: HEMOGLOBIN A1c 8.1 % (4.0-6.0)
[2022-07-09 07:07] LABS: APOLIPOPROTEIN B/A-1 RATIO 0.4 ratio (0.0-0.6)
== END ==
LOC: M PLALAB 08:56
PROVIDERS: ATTEND Family Medicine
DX: E55.9 Vitamin D deficiency, unspecified (principal); I47.1 Supraventricular tachycardia; E11.9 Type 2 diabetes mellitus without complications; Z79.899 Other long term (current) drug therapy

== ENCOUNTER → 2022-09-10 | Outpatient (CLI) | payer MEDICARE | LOC: M WHC 11:42 | PROVIDERS: ATTEND Family Medicine | DX: Z12.31 Encounter for screening mammogram for malignant neoplasm of breast (principal) ==

== ENCOUNTER 2022-10-14 15:15 | Outpatient (CLI) | payer MEDICARE ==
[2022-10-14 15:20] VITALS: BP 161/79
[2022-10-14] MEDS ORDERED: ZOLEDRONIC ACID 5 MG in IV 1 EA IV ONE (16:00)
[2022-10-14 16:05] VITALS: BP 156/83
== END 2022-10-14 16:05 | disposition home or self-care (01) ==
LOC: M INFU 15:15
PROVIDERS: ATTEND Family Medicine
DX: M85.89 Other specified disorders of bone density and structure, multiple sites (principal)
CPT/HCPCS: 96365; J3489

== ENCOUNTER → 2022-10-19 | Outpatient (CLI) | payer MEDICARE | LOC: M WUC 14:09 | PROVIDERS: ATTEND Physician Assistant | DX: S80.01XA Contusion of right knee, initial encounter (principal); W18.30XA Fall on same level, unspecified, initial encounter; Y92.009 Unspecified place in unspecified non-institutional (private) residence as the place of occurrence of the external cause ==

== ENCOUNTER → 2022-10-27 | Outpatient (REF) | payer MEDICARE | LOC: M SFHCPLAZ 16:40 | PROVIDERS: ATTEND Physician Assistant | DX: R32 Unspecified urinary incontinence (principal) ==

== ENCOUNTER → 2022-11-01 | Outpatient (CLI) | payer MEDICARE | LOC: M WHC 14:05 | PROVIDERS: ATTEND Physician Assistant | DX: Q61.02 Congenital multiple renal cysts (principal); R31.9 Hematuria, unspecified ==

== ENCOUNTER → 2022-11-03 | Outpatient (CLI) | payer MEDICARE | LOC: M WHC 08:18 | PROVIDERS: ATTEND Physician Assistant | DX: R31.9 Hematuria, unspecified (principal) ==

== ENCOUNTER → 2022-11-09 | Outpatient (CLI) | payer MEDICARE ==
[~2022-11-09] MED LIST changes: +GASTROGRAFIN SOLUTION 30ML As Ordered ONE; +ISOVUE-370 76% 100ML VIAL As Ordered ONE
[2022-11-09 11:07] LABS: BASO % 0.5 % (0.0-1.0); EOS # 0.1 10^3/uL (0.0-0.5); HEMATOCRIT 36.3 % (36.0-47.0); LYMPH # 1.4 10^3/uL (1.5-5.0); MEAN CORPUSCULAR HEMOGLOBIN 28.2 pg (27.0-33.0); MEAN CORPUSCULAR HGB CONC 33.1 g/dl (32.0-36.5); MEAN CORPUSCULAR VOLUME 85.4 fl (80.0-96.0); MONO # 0.4 10^3/uL (0.0-0.8); MONO % 6.8 % (2.0-8.0); NEUTROPHILS % 67.4 % (36.0-66.0); PLATELET COUNT, AUTOMATED 294 10^3/uL (150-450); RED BLOOD COUNT 4.25 10^6/uL (4.00-5.40); WHITE BLOOD COUNT 5.9 10^3/uL (4.0-10.0)
[2022-11-09 11:26] LABS: ALBUMIN 3.3 G/DL (3.2-5.2); BILIRUBIN,TOTAL 0.4 MG/DL (0.3-1.2); CALCIUM LEVEL 8.4 MG/DL (8.3-10.6); CREATININE FOR GFR 1.1 MG/DL (0.55-1.30); GLOMERULAR FILTRATION RATE 51.7 (>39); POTASSIUM SERUM 4.5 MMOL/L (3.5-5.1)
== END ==
LOC: M RAD 09:51
PROVIDERS: ATTEND Physician Assistant
DX: N95.0 Postmenopausal bleeding (principal); R93.5 Abnormal findings on diagnostic imaging of other abdominal regions, including retroperitoneum
CPT/HCPCS: 36415; 74178; 80053; 85025; Q9963; Q9967

== ENCOUNTER 2022-11-15 16:03 | Emergency (ER) | payer OTHER, MEDICARE ==
[~2022-11-15] VITALS: Ht 165.1 cm; Wt 102.7 kg
[~2022-11-15 16:03] MED LIST changes: -GASTROGRAFIN SOLUTION 30ML As Ordered ONE; -ISOVUE-370 76% 100ML VIAL As Ordered ONE
[2022-11-15 19:05] LABS: HEMATOCRIT 36.6 % (36.0-47.0); HEMOGLOBIN 11.9 g/dl (12.0-15.5); MEAN CORPUSCULAR HEMOGLOBIN 28.3 pg (27.0-33.0); MEAN CORPUSCULAR HGB CONC 32.5 g/dl (32.0-36.5); MEAN CORPUSCULAR VOLUME 86.9 fl (80.0-96.0); PLATELET COUNT, AUTOMATED 292 10^3/uL (150-450); RED BLOOD COUNT 4.21 10^6/uL (4.00-5.40)
[2022-11-15 19:26] LABS: CREATININE FOR GFR 1.17 MG/DL (0.55-1.30); GLOMERULAR FILTRATION RATE 48.1 (>39); POTASSIUM SERUM 4.7 MMOL/L (3.5-5.1)
[2022-11-15 21:32] VITALS: BP 168/92
== END 2022-11-15 21:40 | disposition short-term general hospital (02) ==
LOC: M ED 16:03
DX: S06.5X0A Traumatic subdural hemorrhage without loss of consciousness, initial encounter (principal); W01.0XXA Fall on same level from slipping, tripping and stumbling without subsequent striking against object, initial encounter; Y92.512 Supermarket, store or market as the place of occurrence of the external cause; Y93.89 Activity, other specified; Y99.8 Other external cause status; I10 Essential (primary) hypertension; N18.30 Chronic kidney disease, stage 3 unspecified; E11.9 Type 2 diabetes mellitus without complications; K76.0 Fatty (change of) liver, not elsewhere classified; Z79.84 Long term (current) use of oral hypoglycemic drugs; Z79.899 Other long term (current) drug therapy

== ENCOUNTER → 2022-11-23 | Outpatient (CLI) | payer MEDICARE ==
[2022-11-23 10:48] LABS: BASO % 0.7 % (0.0-1.0); EOS # 0.1 10^3/uL (0.0-0.5); HEMATOCRIT 37.1 % (36.0-47.0); LYMPH # 1.4 10^3/uL (1.5-5.0); MEAN CORPUSCULAR HEMOGLOBIN 28.2 pg (27.0-33.0); MEAN CORPUSCULAR HGB CONC 32.3 g/dl (32.0-36.5); MEAN CORPUSCULAR VOLUME 87.3 fl (80.0-96.0); MONO # 0.4 10^3/uL (0.0-0.8); MONO % 7.6 % (2.0-8.0); NEUTROPHILS # 3.6 10^3/uL (1.5-8.5); NEUTROPHILS % 64.5 % (36.0-66.0); PLATELET COUNT, AUTOMATED 319 10^3/uL (150-450); RED BLOOD COUNT 4.25 10^6/uL (4.00-5.40); WHITE BLOOD COUNT 5.6 10^3/uL (4.0-10.0)
[2022-11-23 10:53] LABS: ALBUMIN 3.1 G/DL (3.2-5.2); ALKALINE PHOSPHATASE 73 U/L (46-116); ALT/SGPT 13 U/L (7.0-40); AST/SGOT < 8 U/L (<34); BILIRUBIN,TOTAL 0.4 MG/DL (0.3-1.2); BLOOD UREA NITROGEN 19 MG/DL (9-23); CALCIUM LEVEL 8.7 MG/DL (8.3-10.6); CARBON DIOXIDE LEVEL 31 MMOL/L (20-31); CHLORIDE LEVEL 104 MMOL/L (98-107); CHOLESTEROL LEVEL 106 MG/DL (<200); CHOLESTEROL RISK RATIO 2.97 (<5); CREATININE FOR GFR 1.19 MG/DL (0.55-1.30); GLOMERULAR FILTRATION RATE 47.2 (>39); GLUCOSE, FASTING 192 MG/DL (74-106); HDL CHOLESTEROL 35.6 MG/DL (>40); LDL CHOLESTEROL 47.2 MG/DL (<100); MAGNESIUM LEVEL 1.1 MG/DL (1.8-2.4); NON-HDL-C 70.4 MG/DL; POTASSIUM SERUM 4.8 MMOL/L (3.5-5.1); SODIUM LEVEL 140 MMOL/L (136-145); TRIGLYCERIDES LEVEL 116 MG/DL (<150)
[2022-11-23 10:56] LABS: THYROID STIMULATING HORMONE 0.625 uIU/ML (0.55-4.78)
[2022-11-23 10:57] LABS: FERRITIN 104.2 NG/ML (7.3-270.7)
[2022-11-23 11:06] LABS: HEMOGLOBIN A1c 6.8 % (4.0-6.0)
== END ==
LOC: M PLALAB 08:03
PROVIDERS: ATTEND Family Medicine
DX: E11.22 Type 2 diabetes mellitus with diabetic chronic kidney disease (principal); N18.30 Chronic kidney disease, stage 3 unspecified

== ENCOUNTER → 2022-11-29 | Outpatient (REF) | payer MEDICARE | LOC: M PLALAB 14:33 | PROVIDERS: ATTEND Nurse Practitioner Family | DX: N95.0 Postmenopausal bleeding (principal) ==

== ENCOUNTER 2023-01-06 14:59 | Emergency (ER) | payer MEDICARE ==
[~2023-01-06] VITALS: Ht 167.6 cm; Wt 97.9 kg
[2023-01-06 15:00] VITALS: TEMP 97.6
[2023-01-06] MEDS ORDERED: FLUT50SP33 NARES (15:38)
[2023-01-06] MEDS ORDERED: ACTO30TA15 PO (15:38)
[2023-01-06] MEDS ORDERED: GLIM2TAB4 PO (15:38)
[2023-01-06] MEDS ORDERED: ASPI81CH33 PO (15:38)
[2023-01-06] MEDS ORDERED: SPIRONOLACTONE 12.5MG PER 1/2 TABLET PO ONE (18:15)
[2023-01-06 18:16] LABS: VENOUS BASE EXCESS 1.5 (-2.0-2.0); VENOUS HCO3 27.3 MMOL/L (23.0-27.0); VENOUS O2 SATURATION 56.5 % (60.0-80.0); VENOUS PARTIAL PRESSURE CO2 47.9 mmHg (38.0-50.0); VENOUS PARTIAL PRESSURE O2 30.5 mmHg (30.0-50.0); VENOUS PH 7.374 UNITS (7.330-7.430); VENOUS STANDARD HCO3 24.9 MMOL/L; VENOUS TOTAL CO2 28.8 MMOL/L (24.0-28.0)
[2023-01-06 18:30] LABS: BASO % 0.6 % (0.0-1.0); EOS % 0.6 % (0.0-3.0); HEMATOCRIT 35.3 % (36.0-47.0); HEMOGLOBIN 11.4 g/dl (12.0-15.5); LYMPH # 1.3 10^3/uL (1.5-5.0); LYMPH % 18.9 % (24.0-44.0); MEAN CORPUSCULAR HEMOGLOBIN 26.9 pg (27.0-33.0); MEAN CORPUSCULAR HGB CONC 32.3 g/dl (32.0-36.5); MEAN CORPUSCULAR VOLUME 83.3 fl (80.0-96.0); MONO # 0.5 10^3/uL (0.0-0.8); NEUTROPHILS # 5.1 10^3/uL (1.5-8.5); NEUTROPHILS % 72.3 % (36.0-66.0); PLATELET COUNT, AUTOMATED 378 10^3/uL (150-450); RED BLOOD COUNT 4.24 10^6/uL (4.00-5.40)
[2023-01-06 18:43] LABS: HEMOGLOBIN A1c 10.1 % (4.0-6.0)
[2023-01-06 18:50] LABS: ALBUMIN 3.1 G/DL (3.2-5.2); ALKALINE PHOSPHATASE 93 U/L (46-116); ALT/SGPT 13 U/L (7.0-40); AST/SGOT < 8 U/L (<34); BILIRUBIN,DIRECT 0.2 MG/DL (<0.4); BILIRUBIN,TOTAL 0.5 MG/DL (0.3-1.2); BLOOD UREA NITROGEN 18 MG/DL (9-23); CALCIUM LEVEL 8.6 MG/DL (8.3-10.6); CARBON DIOXIDE LEVEL 28 MMOL/L (20-31); CHLORIDE LEVEL 98 MMOL/L (98-107); CREATININE FOR GFR 1.06 MG/DL (0.55-1.30); GLOMERULAR FILTRATION RATE 53.9 (>39); GLUCOSE, FASTING 348 MG/DL (74-106); POTASSIUM SERUM 4.3 MMOL/L (3.5-5.1); SODIUM LEVEL 134 MMOL/L (136-145); TOTAL PROTEIN 6.5 G/DL (5.7-8.2)
[2023-01-06] MEDS ORDERED: HumuLIN R (REGULAR) INSULIN (NovoLIN R) **100U/ML** PER UNIT IV ONE (18:55)
[2023-01-06 19:59] VITALS: BP 180/88; O2SAT 98
== END 2023-01-06 20:49 | disposition home or self-care (01) ==
LOC: M ED 14:59
DX: E11.65 Type 2 diabetes mellitus with hyperglycemia (principal); I12.9 Hypertensive chronic kidney disease with stage 1 through stage 4 chronic kidney disease, or unspecified chronic kidney disease; E78.5 Hyperlipidemia, unspecified; K75.81 Nonalcoholic steatohepatitis (NASH); K21.9 Gastro-esophageal reflux disease without esophagitis; M81.0 Age-related osteoporosis without current pathological fracture; E66.9 Obesity, unspecified; I47.1 Supraventricular tachycardia; Z79.899 Other long term (current) drug therapy; Z79.84 Long term (current) use of oral hypoglycemic drugs; Z79.82 Long term (current) use of aspirin
CPT/HCPCS: 80048; 80076; 82803; 83036; 85025; 93041; 94760; 96374; 99284; J1815

== ENCOUNTER → 2023-01-27 | Outpatient (CLI) | payer MEDICARE ==
[~2023-01-27] MED LIST changes: +ACTO30TA15 PO; +ASPI81CH33 PO; +CARV25TA PO; +FERR324T2 PO; +FLUT50SP33 NARES; +TRES1INJ SUBQ
[2023-01-27 17:04] LABS: ALBUMIN 2.8 G/DL (3.2-5.2); BILIRUBIN,TOTAL 0.3 MG/DL (0.3-1.2); CALCIUM LEVEL 8.7 MG/DL (8.3-10.6); CREATININE FOR GFR 1.09 MG/DL (0.55-1.30); GLOMERULAR FILTRATION RATE 52.2 (>39); POTASSIUM SERUM 5.1 MMOL/L (3.5-5.1)
[2023-02-04 18:11] LABS: C-PEPTIDE 5.4 ng/mL (1.1-4.4); INSULIN ANTIBODY <5.0 uU/mL (.); ISLET CELL ANTIBODIES Negative (Neg:<1:1)
== END ==
LOC: M PLALAB 14:26
PROVIDERS: ATTEND Physician Assistant
DX: E11.9 Type 2 diabetes mellitus without complications (principal)

== ENCOUNTER 2023-01-31 10:44 | Observation (INO) | payer MEDICARE ==
[~2023-01-31] VITALS: Ht 167.6 cm; Wt 94.3 kg
[~2023-01-31 10:44] MED LIST changes: -CARV25TA PO; -FERR324T2 PO; -TRES1INJ SUBQ
[2023-01-31 11:31] LABS: BASO % 0.2 % (0.0-1.0); EOS % 0.2 % (0.0-3.0); HEMATOCRIT 35.7 % (36.0-47.0); HEMOGLOBIN 11.4 g/dl (12.0-15.5); LYMPH # 0.8 10^3/uL (1.5-5.0); MEAN CORPUSCULAR HEMOGLOBIN 26.1 pg (27.0-33.0); MEAN CORPUSCULAR HGB CONC 31.9 g/dl (32.0-36.5); MEAN CORPUSCULAR VOLUME 81.9 fl (80.0-96.0); MONO # 0.4 10^3/uL (0.0-0.8); MONO % 5.1 % (2.0-8.0); NEUTROPHILS % 84.8 % (36.0-66.0); PLATELET COUNT, AUTOMATED 368 10^3/uL (150-450); RED BLOOD COUNT 4.36 10^6/uL (4.00-5.40); WHITE BLOOD COUNT 8.3 10^3/uL (4.0-10.0)
[2023-01-31 11:54] LABS: BLOOD UREA NITROGEN 29 MG/DL (9-23); CALCIUM LEVEL 8.5 MG/DL (8.3-10.6); CARBON DIOXIDE LEVEL 28 MMOL/L (20-31); CHLORIDE LEVEL 103 MMOL/L (98-107); CREATININE FOR GFR 0.79 MG/DL (0.55-1.30); GLOMERULAR FILTRATION RATE > 60.0 (>39); GLUCOSE, FASTING 192 MG/DL (74-106); POTASSIUM SERUM 3.9 MMOL/L (3.5-5.1); SODIUM LEVEL 139 MMOL/L (136-145)
[2023-01-31 11:55] LABS: HEMOGLOBIN A1c 11.4 % (4.0-6.0)
[2023-01-31] MEDS ORDERED: MED REC IN PROGRESS XX SCH (13:30)
[2023-01-31] MEDS ORDERED: GLUCAGON INJ 1MG VIAL SC PRN (13:45)
[2023-01-31] MEDS ORDERED: GLUCOSE 4GM CHEW TABLET PO PRN (13:45)
[2023-01-31] MEDS ORDERED: DEXTROSE 50% 50ML SYRINGE IV PRN (13:45)
[2023-01-31] MEDS ORDERED: TRES1INJ SUBQ (14:02)
[2023-01-31] MEDS ORDERED: CARV25TA PO (14:02)
[2023-01-31] MEDS ORDERED: FERR324T2 PO (14:02)
[2023-01-31] MEDS ORDERED: HOME MED LIST COMPLETE! XX SCH (14:10)
[2023-01-31] MEDS ORDERED: amLODIPine 5 MG TAB PO ONE (16:55)
[2023-01-31] MEDS ORDERED: INSULIN LISPRO (NovoLOG) PER UNIT SC SCH ×2 (17:30→21:00)
[2023-01-31] MEDS: CARVedilol 12.5 MG TAB PO SCH (18:19)
[2023-01-31 18:44] VITALS: BP 177/77; TEMP 97.5
[2023-01-31 18:52] VITALS: O2SAT 98
[2023-01-31 19:35] VITALS: BP 145/66; TEMP 97.2; O2SAT 99
[2023-01-31 20:19] VITALS: BP_SYST 103; BP_SYST 118; BP_SYST 130; BP_DIAS 57; BP_DIAS 60; BP_DIAS 63
[2023-01-31] MEDS: GLIMEPIRIDE 1 MG TABLET PO SCH (20:34)
[2023-01-31] MEDS ORDERED: LEVEMIR (INSULIN DETEMIR) 1 UNITS/0.01ML SC SCH (21:00)
[2023-01-31 23:18] VITALS: BP 124/78; TEMP 99.2; O2SAT 96
[2023-02-01 03:48] VITALS: BP_SYST 152; BP_SYST 153; BP_SYST 168; BP_DIAS 63; BP_DIAS 70; BP_DIAS 79
[2023-02-01 04:42] LABS: BASO % 0.5 % (0.0-1.0); EOS # 0.1 10^3/uL (0.0-0.5); EOS % 1.3 % (0.0-3.0); HEMATOCRIT 32.3 % (36.0-47.0); HEMOGLOBIN 10.4 g/dl (12.0-15.5); LYMPH % 16.3 % (24.0-44.0); MEAN CORPUSCULAR HEMOGLOBIN 26.5 pg (27.0-33.0); MEAN CORPUSCULAR HGB CONC 32.2 g/dl (32.0-36.5); MEAN CORPUSCULAR VOLUME 82.4 fl (80.0-96.0); MONO # 0.5 10^3/uL (0.0-0.8); MONO % 7.4 % (2.0-8.0); NEUTROPHILS # 4.6 10^3/uL (1.5-8.5); NEUTROPHILS % 74.2 % (36.0-66.0); PLATELET COUNT, AUTOMATED 321 10^3/uL (150-450); RED BLOOD COUNT 3.92 10^6/uL (4.00-5.40); WHITE BLOOD COUNT 6.2 10^3/uL (4.0-10.0)
[2023-02-01 05:08] LABS: CALCIUM LEVEL 9.2 MG/DL (8.3-10.6); CREATININE FOR GFR 1.04 MG/DL (0.55-1.30); GLOMERULAR FILTRATION RATE 55.1 (>39); POTASSIUM SERUM 4.3 MMOL/L (3.5-5.1)
[2023-02-01] MEDS ORDERED: D5W 1,000 ML IV SCH (06:05)
[2023-02-01 07:58] VITALS: BP 152/75; TEMP 99; O2SAT 98
[2023-02-01] MEDS ORDERED: GLIMEPIRIDE 2 MG TAB PO SCH (08:00)
[2023-02-01] MEDS: ATORVASTATIN 20 MG TAB PO SCH (08:53)
[2023-02-01] MEDS: ASPIRIN 81MG CHEW TABLET PO SCH (08:53)
[2023-02-01] MEDS: CARVedilol 12.5 MG TAB PO SCH ×2 (08:54→17:37)
[2023-02-01] MEDS ORDERED: INSULIN LISPRO (NovoLOG) PER UNIT SC ONE (09:40)
[2023-02-01] MEDS ORDERED: LEVEMIR (INSULIN DETEMIR) 1 UNITS/0.01ML SC ONE (09:40)
[2023-02-01 11:39] VITALS: BP 144/63; TEMP 97.3; O2SAT 100
[2023-02-01] MEDS: INSULIN LISPRO (NovoLOG) PER UNIT SC SCH ×2 (12:35→17:30)
[2023-02-01 16:00] VITALS: BP 156/76; TEMP 97.3; O2SAT 96
[2023-02-01] MEDS: GLIMEPIRIDE 1 MG TABLET PO SCH (17:37)
[2023-02-01 20:16] VITALS: BP 154/68; TEMP 96.7; O2SAT 99
[2023-02-01] MEDS ORDERED: LEVEMIR (INSULIN DETEMIR) 1 UNITS/0.01ML SC SCH ×2 (21:00)
[2023-02-02 00:50] VITALS: BP 133/60; TEMP 97.7; O2SAT 96
[2023-02-02 04:00] VITALS: BP 136/70; TEMP 97; O2SAT 97
[2023-02-02 06:01] LABS: BASO # 0.1 10^3/uL (0.0-0.2); BASO % 0.8 % (0.0-1.0); EOS # 0.2 10^3/uL (0.0-0.5); EOS % 2.5 % (0.0-3.0); HEMATOCRIT 30.5 % (36.0-47.0); HEMOGLOBIN 9.7 g/dl (12.0-15.5); LYMPH # 1.6 10^3/uL (1.5-5.0); LYMPH % 26.5 % (24.0-44.0); MEAN CORPUSCULAR HEMOGLOBIN 26.4 pg (27.0-33.0); MEAN CORPUSCULAR HGB CONC 31.8 g/dl (32.0-36.5); MEAN CORPUSCULAR VOLUME 83.1 fl (80.0-96.0); MONO # 0.6 10^3/uL (0.0-0.8); MONO % 10.3 % (2.0-8.0); NEUTROPHILS # 3.5 10^3/uL (1.5-8.5); NEUTROPHILS % 59.2 % (36.0-66.0); PLATELET COUNT, AUTOMATED 318 10^3/uL (150-450); RED BLOOD COUNT 3.67 10^6/uL (4.00-5.40); WHITE BLOOD COUNT 5.9 10^3/uL (4.0-10.0)
[2023-02-02 06:21] LABS: BLOOD UREA NITROGEN 22 MG/DL (9-23); CALCIUM LEVEL 8.3 MG/DL (8.3-10.6); CARBON DIOXIDE LEVEL 27 MMOL/L (20-31); CHLORIDE LEVEL 106 MMOL/L (98-107); CREATININE FOR GFR 0.91 MG/DL (0.55-1.30); GLOMERULAR FILTRATION RATE > 60.0 (>39); GLUCOSE, FASTING 107 MG/DL (74-106); POTASSIUM SERUM 4.3 MMOL/L (3.5-5.1); SODIUM LEVEL 141 MMOL/L (136-145)
[2023-02-02] MEDS: INSULIN LISPRO (NovoLOG) PER UNIT SC SCH ×3 (07:30→18:05)
[2023-02-02 08:11] VITALS: BP 154/67; TEMP 96.9; O2SAT 96
[2023-02-02] MEDS: LEVEMIR (INSULIN DETEMIR) 1 UNITS/0.01ML SC SCH (09:45)
[2023-02-02] MEDS: GLIMEPIRIDE 1 MG TABLET PO SCH ×2 (09:46→18:04)
[2023-02-02] MEDS: ATORVASTATIN 20 MG TAB PO SCH (09:46)
[2023-02-02] MEDS: ASPIRIN 81MG CHEW TABLET PO SCH (09:46)
[2023-02-02] MEDS: CARVedilol 12.5 MG TAB PO SCH ×2 (09:46→18:06)
[2023-02-02 12:00] VITALS: BP 144/67
[2023-02-02 20:00] VITALS: BP 154/66; TEMP 97.7; O2SAT 96
[2023-02-02] MEDS ORDERED: LEVEMIR (INSULIN DETEMIR) 1 UNITS/0.01ML SC SCH (21:00)
[2023-02-03] VITALS: BP 148/67; TEMP 97.3; O2SAT 99
[2023-02-03 04:00] VITALS: BP 145/65; TEMP 97.1; O2SAT 93
[2023-02-03 05:02] LABS: BASO % 0.7 % (0.0-1.0); EOS # 0.1 10^3/uL (0.0-0.5); EOS % 1.9 % (0.0-3.0); HEMATOCRIT 30.4 % (36.0-47.0); HEMOGLOBIN 9.8 g/dl (12.0-15.5); LYMPH # 1.4 10^3/uL (1.5-5.0); LYMPH % 24.3 % (24.0-44.0); MEAN CORPUSCULAR HEMOGLOBIN 26.6 pg (27.0-33.0); MEAN CORPUSCULAR HGB CONC 32.2 g/dl (32.0-36.5); MEAN CORPUSCULAR VOLUME 82.4 fl (80.0-96.0); MONO # 0.6 10^3/uL (0.0-0.8); MONO % 9.8 % (2.0-8.0); NEUTROPHILS # 3.6 10^3/uL (1.5-8.5); NEUTROPHILS % 62.6 % (36.0-66.0); PLATELET COUNT, AUTOMATED 330 10^3/uL (150-450); RED BLOOD COUNT 3.69 10^6/uL (4.00-5.40); WHITE BLOOD COUNT 5.8 10^3/uL (4.0-10.0)
[2023-02-03 05:27] LABS: BLOOD UREA NITROGEN 22 MG/DL (9-23); CALCIUM LEVEL 8.4 MG/DL (8.3-10.6); CARBON DIOXIDE LEVEL 30 MMOL/L (20-31); CHLORIDE LEVEL 106 MMOL/L (98-107); CREATININE FOR GFR 0.86 MG/DL (0.55-1.30); GLOMERULAR FILTRATION RATE > 60.0 (>39); GLUCOSE, FASTING 129 MG/DL (74-106); POTASSIUM SERUM 4.3 MMOL/L (3.5-5.1); SODIUM LEVEL 140 MMOL/L (136-145)
[2023-02-03] MEDS ORDERED: TRES1INJ SUBQ (07:39)
[2023-02-03] MEDS: INSULIN LISPRO (NovoLOG) PER UNIT SC SCH ×2 (08:09→12:04)
[2023-02-03] MEDS: GLIMEPIRIDE 1 MG TABLET PO SCH (08:09)
[2023-02-03] MEDS: ASPIRIN 81MG CHEW TABLET PO SCH (08:10)
[2023-02-03 08:11] VITALS: BP 145/67
[2023-02-03] MEDS: ATORVASTATIN 20 MG TAB PO SCH (08:11)
[2023-02-03] MEDS: CARVedilol 12.5 MG TAB PO SCH (08:11)
[2023-02-03] MEDS: LEVEMIR (INSULIN DETEMIR) 1 UNITS/0.01ML SC SCH (08:11)
[2023-02-03 08:55] VITALS: BP 148/67; TEMP 97.1; O2SAT 97
[2023-02-03] MEDS ORDERED: SENNA 8.6 MG TAB (SENOKOT) PO SCH (09:00)
[2023-02-03 11:54] VITALS: BP_SYST 148; BP_SYST 168; BP_DIAS 68; BP_DIAS 72; TEMP 96.6; O2SAT 95
== END 2023-02-03 12:59 | disposition home or self-care (01) ==
LOC: M ED 10:44 → M ED INP 13:42 → M PCU 18:35
PROVIDERS: ADMIT Internal Medicine Nephrology; ATTEND Internal Medicine Nephrology
DX: R55 Syncope and collapse (principal); E11.649 Type 2 diabetes mellitus with hypoglycemia without coma; R26.81 Unsteadiness on feet; C54.1 Malignant neoplasm of endometrium; E78.5 Hyperlipidemia, unspecified; I12.9 Hypertensive chronic kidney disease with stage 1 through stage 4 chronic kidney disease, or unspecified chronic kidney disease; I51.9 Heart disease, unspecified; E53.8 Deficiency of other specified B group vitamins; E66.9 Obesity, unspecified; K21.9 Gastro-esophageal reflux disease without esophagitis; N18.30 Chronic kidney disease, stage 3 unspecified; M81.0 Age-related osteoporosis without current pathological fracture; D72.819 Decreased white blood cell count, unspecified; J30.9 Allergic rhinitis, unspecified; K76.0 Fatty (change of) liver, not elsewhere classified; K44.9 Diaphragmatic hernia without obstruction or gangrene; R47.81 Slurred speech; R32 Unspecified urinary incontinence; Z79.899 Other long term (current) drug therapy; Z79.82 Long term (current) use of aspirin; Z79.84 Long term (current) use of oral hypoglycemic drugs; Z79.4 Long term (current) use of insulin
CPT/HCPCS: 36415; 70450; 70551; 80048; 81001; 82550; 82947; 83036; 85025; 87086; 93005; 93306; 93880; 97112; 97161; 99285; G0378; J1815

== ENCOUNTER → 2023-02-10 | Outpatient (CLI) | payer MEDICARE ==
[~2023-02-10] MED LIST changes: +CARV25TA PO; +FERR324T2 PO; +TRES1INJ SUBQ
[2023-02-10 18:02] LABS: BASO # 0.1 10^3/uL (0.0-0.2); BASO % 0.6 % (0.0-1.0); EOS # 0.1 10^3/uL (0.0-0.5); EOS % 1.2 % (0.0-3.0); HEMATOCRIT 33.5 % (36.0-47.0); HEMOGLOBIN 10.6 g/dl (12.0-15.5); LYMPH # 1.8 10^3/uL (1.5-5.0); LYMPH % 22.8 % (24.0-44.0); MEAN CORPUSCULAR HEMOGLOBIN 26.4 pg (27.0-33.0); MEAN CORPUSCULAR HGB CONC 31.6 g/dl (32.0-36.5); MEAN CORPUSCULAR VOLUME 83.5 fl (80.0-96.0); MONO # 0.6 10^3/uL (0.0-0.8); MONO % 7.1 % (2.0-8.0); NEUTROPHILS # 5.5 10^3/uL (1.5-8.5); NEUTROPHILS % 67.4 % (36.0-66.0); PLATELET COUNT, AUTOMATED 323 10^3/uL (150-450); RED BLOOD COUNT 4.01 10^6/uL (4.00-5.40); WHITE BLOOD COUNT 8.1 10^3/uL (4.0-10.0)
[2023-02-10 18:22] LABS: ALBUMIN 2.7 G/DL (3.2-5.2); ALKALINE PHOSPHATASE 78 U/L (46-116); ALT/SGPT 14 U/L (7.0-40); AST/SGOT 12 U/L (<34); BILIRUBIN,TOTAL 0.2 MG/DL (0.3-1.2); BLOOD UREA NITROGEN 26 MG/DL (9-23); CALCIUM LEVEL 9.9 MG/DL (8.3-10.6); CARBON DIOXIDE LEVEL 25 MMOL/L (20-31); CHLORIDE LEVEL 101 MMOL/L (98-107); CREATININE FOR GFR 0.91 MG/DL (0.55-1.30); GLOMERULAR FILTRATION RATE > 60.0 (>39); GLUCOSE, FASTING 65 MG/DL (74-106); POTASSIUM SERUM 5.1 MMOL/L (3.5-5.1); SODIUM LEVEL 138 MMOL/L (136-145); TOTAL PROTEIN 6.1 G/DL (5.7-8.2)
[2023-02-10 18:24] LABS: FERRITIN 182.1 NG/ML (7.3-270.7); THYROID STIMULATING HORMONE 0.611 uIU/ML (0.55-4.78)
[2023-02-10 18:25] LABS: FREE T4 1.44 NG/DL (0.89-1.76)
== END ==
LOC: M PLALAB 16:22
PROVIDERS: ATTEND Family Medicine
DX: D50.9 Iron deficiency anemia, unspecified (principal); I50.32 Chronic diastolic (congestive) heart failure

== ENCOUNTER 2023-02-23 06:56 | Outpatient (CLI) | payer MEDICARE ==
[~2023-02-23] VITALS: Ht 167.6 cm; Wt 95.5 kg
[2023-02-23 07:00] VITALS: BP 133/62; O2SAT 97
[2023-02-23] MEDS ORDERED: ALBUTEROL SULFATE 2.5MG/0.5ML INH NEB SOLN INH PRN (07:01)
[2023-02-23] MEDS ORDERED: EPINEPHrine INJ 1 MG/ML 1ML AMP IM PRN (07:01)
[2023-02-23] MEDS ORDERED: methylPREDNISolone 125MG 2ML VIAL IV PRN (07:01)
[2023-02-23] MEDS ORDERED: diphenhydrAMINE 50MG/ML VIAL IV PRN (07:01)
[2023-02-23] MEDS ORDERED: NS 1,000 ML IV SCH (07:30)
[2023-02-23] MEDS ORDERED: IRON SUCROSE 500 MG in NS 250 ML OVER 4 HRS IV ONE (08:00)
[2023-02-23 09:00] VITALS: BP 133/70; O2SAT 98
[2023-02-23 10:00] VITALS: BP 157/77; O2SAT 98
[2023-02-23 11:00] VITALS: BP 163/77; O2SAT 97
[2023-02-23 12:00] VITALS: BP 170/86; O2SAT 97
== END 2023-02-23 12:30 ==
LOC: M INFU 06:56
PROVIDERS: ATTEND Family Medicine
DX: D50.9 Iron deficiency anemia, unspecified (principal)
CPT/HCPCS: 96365; 96366; J1756

== ENCOUNTER → 2023-02-23 | Outpatient (CLI) | payer MEDICARE | LOC: M PLARAD 07:00 | PROVIDERS: ATTEND Obstetrics & Gynecology | DX: Z53.9 Procedure and treatment not carried out, unspecified reason (principal) ==

== ENCOUNTER → 2023-03-07 | Outpatient (CLI) | payer MEDICARE | LOC: M PLARAD 13:15 | PROVIDERS: ATTEND Obstetrics & Gynecology | DX: C54.1 Malignant neoplasm of endometrium (principal) | CPT/HCPCS: 78815; A9552 ==

== ENCOUNTER → 2023-04-18 | Outpatient (CLI) | payer MEDICARE ==
[~2023-04-18] MED LIST changes: +CALCCAP4 PO; +GLIM4TAB5 PO; +LANC-66; +LIDOCAINE 1% MDV 20ML VIAL As Ordered ONE; +MUPI30CR TOP
[2023-04-18 11:33] VITALS: TEMP 97.4
[2023-04-18 12:29] VITALS: BP 150/69; O2SAT 98
== END ==
LOC: M IRPRO 10:56
PROVIDERS: ATTEND Specialist
DX: C77.0 Secondary and unspecified malignant neoplasm of lymph nodes of head, face and neck (principal); C54.1 Malignant neoplasm of endometrium

== ENCOUNTER → 2023-04-19 | Outpatient (CLI) | payer MEDICARE ==
[~2023-04-19] VITALS: Ht 167.6 cm; Wt 95.9 kg
[~2023-04-19] MED LIST changes: -LIDOCAINE 1% MDV 20ML VIAL As Ordered ONE; +LIDOCAINE W/EPINEPHRINE 1% 20ML VIAL As Ordered ONE; +MIDAZOLAM INJ 2MG/2ML VIAL As Ordered ONE; +ceFAZolin 2 GM/D5W 50 ML IV BAG As Ordered ONE; +ceFAZolin SOD 2 GM in IV 1 EA IV ONE; +fentaNYL 100 MCG/2 ML INJECTION As Ordered ONE
[2023-04-19 09:35] VITALS: TEMP 97
[2023-04-19 14:22] VITALS: BP 163/88; O2SAT 98
== END ==
LOC: M IRPRO 09:28
PROVIDERS: ATTEND Specialist
DX: C54.1 Malignant neoplasm of endometrium (principal)
CPT/HCPCS: 36561; 99152; 99153; J0690; J2250; J3010

== ENCOUNTER 2023-05-28 08:57 | Inpatient (IN) | payer MEDICARE ==
[~2023-05-28] VITALS: Ht 167.6 cm; Wt 93.1 kg
[~2023-05-28 08:57] MED LIST changes: +LIDO30CR18 TOP; -LIDOCAINE W/EPINEPHRINE 1% 20ML VIAL As Ordered ONE; +MAGN400C PO; -MIDAZOLAM INJ 2MG/2ML VIAL As Ordered ONE; +ONDA8TAB8 PO; +PROC10TA5 PO; +PROC25SU24 PR; -ceFAZolin 2 GM/D5W 50 ML IV BAG As Ordered ONE; -ceFAZolin SOD 2 GM in IV 1 EA IV ONE; -fentaNYL 100 MCG/2 ML INJECTION As Ordered ONE
[2023-05-28] MEDS ORDERED: NS 500 ML IV ONE ×2 (09:45→11:15)
[2023-05-28] MEDS ORDERED: ONDANSETRON 4MG 2ML VIAL IV ONE (09:45)
[2023-05-28] MEDS: MORPHINE 2 MG/ML 1ML VIAL IV PRN ×2 (09:52→10:25)
[2023-05-28 10:02] LABS: HEMATOCRIT 39.9 % (36.0-47.0); HEMOGLOBIN 13.4 g/dl (12.0-15.5); MEAN CORPUSCULAR HGB CONC 33.6 g/dl (32.0-36.5); MEAN CORPUSCULAR VOLUME 80.3 fl (80.0-96.0); PLATELET COUNT, AUTOMATED 148 10^3/uL (150-450); RED BLOOD COUNT 4.97 10^6/uL (4.00-5.40); WHITE BLOOD COUNT 21.5 10^3/uL (4.0-10.0)
[2023-05-28 10:02] LABS: VENOUS BASE EXCESS -3.1 (-2.0-2.0); VENOUS HCO3 20.8 MMOL/L (23.0-27.0); VENOUS O2 SATURATION 95.6 % (60.0-80.0); VENOUS PARTIAL PRESSURE O2 79.2 mmHg (30.0-50.0); VENOUS PH 7.404 UNITS (7.330-7.430); VENOUS STANDARD HCO3 21.8 MMOL/L; VENOUS TOTAL CO2 21.8 MMOL/L (24.0-28.0)
[2023-05-28 10:26] LABS: ATYPICAL LYMPH 3 % (0-5); LYMPHOCYTES 2 % (16-44); METAMYELOCYTES 2 % (0-0); MONOCYTES 3 % (0-5); NEUTROPHILS 88 % (28-66)
[2023-05-28 10:27] LABS: PLATELET ESTIMATE DECREASED (NORMAL)
[2023-05-28 10:41] LABS: CPK CREATINE PHOSPHOKINASE 227 U/L (34-145)
[2023-05-28 10:54] LABS: ALBUMIN 3.5 G/DL (3.2-5.2); ALKALINE PHOSPHATASE 83 U/L (46-116); ALT/SGPT 21 U/L (7.0-40); AST/SGOT 17 U/L (<34); BILIRUBIN,DIRECT 0.4 MG/DL (<0.4); BILIRUBIN,TOTAL 1.2 MG/DL (0.3-1.2); BLOOD UREA NITROGEN 39 MG/DL (9-23); CARBON DIOXIDE LEVEL 25 MMOL/L (20-31); CHLORIDE LEVEL 101 MMOL/L (98-107); CREATININE FOR GFR 0.99 MG/DL (0.55-1.30); GLOMERULAR FILTRATION RATE 58.2 (>39); GLUCOSE, FASTING 215 MG/DL (74-106); MAGNESIUM LEVEL 0.8 MG/DL (1.8-2.4); POTASSIUM SERUM 4.5 MMOL/L (3.5-5.1); SODIUM LEVEL 137 MMOL/L (136-145); THYROID STIMULATING HORMONE 1.314 uIU/ML (0.55-4.78); TOTAL PROTEIN 6.1 G/DL (5.7-8.2)
[2023-05-28] MEDS ORDERED: MAG SULF 1GM/100ML (MAG RUN) 1 GM in IV 1 EA IV ONE (11:00)
[2023-05-28] MEDS ORDERED: ACETAMINOPHEN 500 MG TAB PO ONE (11:10)
[2023-05-28] MEDS ORDERED: MORPHINE 4 MG/ML 1ML VIAL IV PRN (11:10)
[2023-05-28] MEDS ORDERED: MED REC IN PROGRESS XX SCH (11:20)
[2023-05-28] MEDS ORDERED: LIDO30CR18 TOP (11:51)
[2023-05-28] MEDS ORDERED: TRES1INJ SC (11:51)
[2023-05-28] MEDS ORDERED: MAGN400T2 PO (11:51)
[2023-05-28] MEDS ORDERED: ONDA8TAB8 PO (11:51)
[2023-05-28] MEDS ORDERED: PROC10TA5 PO (11:51)
[2023-05-28] MEDS ORDERED: CENT1TAB PO (11:51)
[2023-05-28] MEDS ORDERED: HOME MED LIST COMPLETE! XX SCH (12:00)
[2023-05-28 12:40] VITALS: BP 131/89; TEMP 96.4; O2SAT 97
[2023-05-28 14:10] LABS: CK-MB VALUE MASS < 1.0 NG/ML (<3.6); MB/CK RELATIVE INDEX 0.44 (< OR =4)
[2023-05-28] MEDS: MAG SULF 1GM/100ML (MAG RUN) 1 GM in IV 1 EA IV SCH ×5 (14:14→23:58)
[2023-05-28 14:23] LABS: PROCALCITONIN 0.06 ng/ml
[2023-05-28] MEDS ORDERED: CALCIUM GLUCONATE 1,000 MG in D5W MINI-BAG PLUS 100 ML IV ONE (15:00)
[2023-05-28 16:31] VITALS: BP 156/68; TEMP 96.2; O2SAT 98
[2023-05-28] MEDS ORDERED: GLUCAGON INJ 1MG VIAL SC PRN (17:00)
[2023-05-28] MEDS ORDERED: GLUCOSE 4GM CHEW TABLET PO PRN (17:00)
[2023-05-28] MEDS ORDERED: DEXTROSE 50% 50ML SYRINGE IV PRN (17:00)
[2023-05-28] MEDS: ACETAMINOPHEN TAB 650MG DOSE (2X325MG) PO PRN (18:01)
[2023-05-28] MEDS: INSULIN LISPRO (NovoLOG) PER UNIT SC SCH (18:02)
[2023-05-28 19:45] VITALS: BP 129/62; TEMP 97.2; O2SAT 97
[2023-05-28] MEDS ORDERED: INSULIN LISPRO (NovoLOG) PER UNIT SC SCH (21:00)
[2023-05-28] MEDS: CARVedilol 12.5 MG TAB PO SCH (21:13)
[2023-05-28 22:07] LABS: CK-MB VALUE MASS < 1.0 NG/ML (<3.6)
[2023-05-28 22:08] LABS: CPK CREATINE PHOSPHOKINASE 125 U/L (34-145)
[2023-05-28 22:40] VITALS: BP 124/60
[2023-05-28 22:53] LABS: MAGNESIUM LEVEL 1.7 MG/DL (1.8-2.4)
[2023-05-29 00:31] VITALS: BP 133/63; TEMP 96.6; O2SAT 96
[2023-05-29] MEDS: ACETAMINOPHEN TAB 650MG DOSE (2X325MG) PO PRN ×2 (01:14→08:08)
[2023-05-29] MEDS: MAG SULF 1GM/100ML (MAG RUN) 1 GM in IV 1 EA IV SCH ×2 (01:14→02:56)
[2023-05-29 04:52] VITALS: BP 124/57; TEMP 98.3; O2SAT 94
[2023-05-29 06:35] LABS: HEMATOCRIT 37.3 % (36.0-47.0); HEMOGLOBIN 12.2 g/dl (12.0-15.5); MEAN CORPUSCULAR HGB CONC 32.7 g/dl (32.0-36.5); MEAN CORPUSCULAR VOLUME 82.5 fl (80.0-96.0); PLATELET COUNT, AUTOMATED 110 10^3/uL (150-450); RED BLOOD COUNT 4.52 10^6/uL (4.00-5.40)
[2023-05-29 06:50] LABS: CK-MB VALUE MASS < 1.0 NG/ML (<3.6)
[2023-05-29 06:54] LABS: ALBUMIN 3.1 G/DL (3.2-5.2); ALKALINE PHOSPHATASE 84 U/L (46-116); ALT/SGPT 23 U/L (7.0-40); AST/SGOT 10 U/L (<34); BILIRUBIN,TOTAL 0.8 MG/DL (0.3-1.2); BLOOD UREA NITROGEN 30 MG/DL (9-23); CALCIUM LEVEL 6.4 MG/DL (8.3-10.6); CARBON DIOXIDE LEVEL 28 MMOL/L (20-31); CHLORIDE LEVEL 102 MMOL/L (98-107); CPK CREATINE PHOSPHOKINASE 81 U/L (34-145); CREATININE FOR GFR 1.08 MG/DL (0.55-1.30); GLOMERULAR FILTRATION RATE 52.7 (>39); GLUCOSE, FASTING 191 MG/DL (74-106); MB/CK RELATIVE INDEX 1.23 (< OR =4); SODIUM LEVEL 138 MMOL/L (136-145); TOTAL PROTEIN 5.4 G/DL (5.7-8.2)
[2023-05-29 07:23] VITALS: BP 136/62; TEMP 96.9; O2SAT 94
[2023-05-29 08:08] VITALS: BP 136/62
[2023-05-29] MEDS: CARVedilol 12.5 MG TAB PO SCH (08:08)
[2023-05-29] MEDS: INSULIN LISPRO (NovoLOG) PER UNIT SC SCH ×2 (08:09→12:16)
[2023-05-29] MEDS ORDERED: GLIMEPIRIDE 2 MG TAB PO SCH (09:00)
[2023-05-29] MEDS ORDERED: ATORVASTATIN 20 MG TAB PO SCH (09:00)
[2023-05-29] MEDS ORDERED: CYANOCOBALAMIN 500 MCG TAB PO SCH (09:00)
[2023-05-29] MEDS ORDERED: ENOXAPARIN 40MG/0.4ML SYRINGE (J1650 PER 10MG) SC SCH (09:00)
[2023-05-29] MEDS ORDERED: SPIRONOLACTONE 12.5MG PER 1/2 TABLET PO SCH (09:00)
[2023-05-29] MEDS ORDERED: ASPIRIN 81MG CHEW TABLET PO SCH (09:00)
[2023-05-29] MEDS: CALCIUM GLUCONATE 1,000 MG in D5W MINI-BAG PLUS 100 ML IV SCH ×2 (09:50→11:14)
[2023-05-29] MEDS ORDERED: CALC500T60 PO ×2 (11:00→11:03)
[2023-05-29] MEDS ORDERED: MAGN400T2 PO ×2 (11:00→11:03)
[2023-05-29] MEDS ORDERED: FAMO40TA3 PO (11:04)
== END 2023-05-29 13:56 | disposition home or self-care (01) | DRG 641 ==
LOC: M ED 08:57 → M ED INP 11:21 → ENRESERV 11:56 → M PCU 12:40
PROVIDERS: ADMIT Internal Medicine; ATTEND Internal Medicine
PROC: B246ZZZ Ultrasonography of Right and Left Heart (ICD-10-PCS; principal; 2023-05-28)
DX: E83.42 Hypomagnesemia (principal); E83.51 Hypocalcemia; E87.6 Hypokalemia; Z66 Do not resuscitate; E66.9 Obesity, unspecified; R00.0 Tachycardia, unspecified; E86.0 Dehydration; E11.22 Type 2 diabetes mellitus with diabetic chronic kidney disease; E02 Subclinical iodine-deficiency hypothyroidism; I12.9 Hypertensive chronic kidney disease with stage 1 through stage 4 chronic kidney disease, or unspecified chronic kidney disease; E78.5 Hyperlipidemia, unspecified; N18.30 Chronic kidney disease, stage 3 unspecified; C54.1 Malignant neoplasm of endometrium; Z79.82 Long term (current) use of aspirin; Z79.4 Long term (current) use of insulin; Z79.899 Other long term (current) drug therapy; Z88.0 Allergy status to penicillin; Z88.8 Allergy status to other drugs, medicaments and biological substances; Z20.822 Contact with and (suspected) exposure to COVID-19

== ENCOUNTER → 2023-05-30 | Outpatient (CLI) | payer MEDICARE ==
[~2023-05-30] MED LIST changes: +CALC500T60 PO; +CENT1TAB PO; +FAMO40TA3 PO; +MAGN400T2 PO; +TRES1INJ SC
== END ==
LOC: M LAB 11:45
PROVIDERS: ATTEND Student in an Organized Health Care Education/Training Program
DX: R78.81 Bacteremia (principal)

== ENCOUNTER → 2023-06-07 | Outpatient (REF) | payer MEDICARE | LOC: M LAB REF 11:25 | PROVIDERS: ATTEND Specialist | DX: C54.1 Malignant neoplasm of endometrium (principal) ==

== ENCOUNTER → 2023-06-10 | Outpatient (REF) | payer MEDICARE | LOC: M SFHCPLAZ 15:53 | PROVIDERS: ATTEND Family Medicine | DX: D50.9 Iron deficiency anemia, unspecified (principal) ==

== ENCOUNTER → 2023-08-10 | Outpatient (CLI) | payer MEDICARE ==
[2023-08-10 12:59] LABS: BASO % 0.3 % (0.0-1.0); EOS % 0.1 % (0.0-3.0); HEMATOCRIT 34.5 % (36.0-47.0); HEMOGLOBIN 11.2 g/dl (12.0-15.5); LYMPH # 1.7 10^3/uL (1.5-5.0); LYMPH % 17.6 % (24.0-44.0); MEAN CORPUSCULAR HEMOGLOBIN 30.5 pg (27.0-33.0); MEAN CORPUSCULAR HGB CONC 32.5 g/dl (32.0-36.5); MONO # 0.5 10^3/uL (0.0-0.8); MONO % 5.1 % (2.0-8.0); NEUTROPHILS # 7.3 10^3/uL (1.5-8.5); NEUTROPHILS % 73.5 % (36.0-66.0); PLATELET COUNT, AUTOMATED 179 10^3/uL (150-450); RED BLOOD COUNT 3.67 10^6/uL (4.00-5.40); WHITE BLOOD COUNT 9.9 10^3/uL (4.0-10.0)
[2023-08-10 13:33] LABS: ALBUMIN 3.7 G/DL (3.2-5.2); BILIRUBIN,TOTAL 0.3 MG/DL (0.3-1.2); CALCIUM LEVEL 9.5 MG/DL (8.3-10.6); CREATININE FOR GFR 1.18 MG/DL (0.55-1.30); FERRITIN 338.7 NG/ML (7.3-270.7); GLOMERULAR FILTRATION RATE 47.5 (>39); MAGNESIUM LEVEL 1.6 MG/DL (1.8-2.4); POTASSIUM SERUM 5.2 MMOL/L (3.5-5.1)
== END ==
LOC: M PLALAB 09:43
PROVIDERS: ATTEND Family Medicine
DX: D50.9 Iron deficiency anemia, unspecified (principal); J06.9 Acute upper respiratory infection, unspecified

== ENCOUNTER → 2023-09-05 | Outpatient (CLI) | payer MEDICARE | LOC: M PLARAD 08:33 | PROVIDERS: ATTEND Internal Medicine Hematology & Oncology | DX: C54.1 Malignant neoplasm of endometrium (principal) | CPT/HCPCS: 78815; A9552 ==

== ENCOUNTER → 2023-09-14 | Outpatient (REF) | payer MEDICARE | LOC: M LAB REF 10:26 | PROVIDERS: ATTEND Nurse Practitioner | DX: C54.1 Malignant neoplasm of endometrium (principal); A04.72 Enterocolitis due to Clostridium difficile, not specified as recurrent; R19.7 Diarrhea, unspecified ==

== ENCOUNTER → 2023-09-28 | Outpatient (CLI) | payer MEDICARE | LOC: M WHC 10:50 | PROVIDERS: ATTEND Family Medicine | DX: Z12.31 Encounter for screening mammogram for malignant neoplasm of breast (principal) ==

== ENCOUNTER → 2023-10-07 | Outpatient (CLI) | payer MEDICARE ==
[~2023-10-07] MED LIST changes: +[UNRECOGNIZED DRUG - OTHER] PO
[2023-10-07 15:57] LABS: ALBUMIN 3.4 G/DL (3.2-5.2); ALKALINE PHOSPHATASE 84 U/L (46-116); ALT/SGPT 22 U/L (7.0-40); AST/SGOT 12 U/L (<34); BILIRUBIN,TOTAL 0.5 MG/DL (0.3-1.2); BLOOD UREA NITROGEN 35 MG/DL (9-23); CALCIUM LEVEL 8.6 MG/DL (8.3-10.6); CARBON DIOXIDE LEVEL 24 MMOL/L (20-31); CHLORIDE LEVEL 104 MMOL/L (98-107); CREATININE FOR GFR 0.95 MG/DL (0.55-1.30); GLOMERULAR FILTRATION RATE > 60.0 (>39); GLUCOSE, FASTING 246 MG/DL (74-106); POTASSIUM SERUM 4.9 MMOL/L (3.5-5.1); SODIUM LEVEL 136 MMOL/L (136-145); TOTAL PROTEIN 5.7 G/DL (5.7-8.2)
== END ==
LOC: M PLALAB 13:33
PROVIDERS: ATTEND Family Medicine
DX: I10 Essential (primary) hypertension (principal)

== ENCOUNTER 2023-10-17 15:24 | Outpatient (CLI) | payer MEDICARE ==
[~2023-10-17] VITALS: Ht 167.6 cm; Wt 95.0 kg
[2023-10-17 15:35] VITALS: BP 130/60; O2SAT 98
[2023-10-17] MEDS: ZOLEDRONIC ACID 5 MG in IV 1 EA IV ONE (15:43)
[2023-10-17 16:15] VITALS: BP 156/67; O2SAT 96
== END 2023-10-17 15:35 ==
LOC: M INFU 15:24
PROVIDERS: ATTEND Family Medicine
DX: M85.80 Other specified disorders of bone density and structure, unspecified site (principal); Z88.2 Allergy status to sulfonamides
CPT/HCPCS: 96413; J3489

== ENCOUNTER → 2023-12-19 | Outpatient (CLI) | payer MEDICARE ==
[~2023-12-19] MED LIST changes: +B-COTAB10 PO; -PROC25SU24 PR; +PROC25SU27 PR
[2023-12-19 13:13] LABS: BASO % 0.6 % (0.0-1.0); EOS # 0.2 10^3/uL (0.0-0.5); EOS % 3.1 % (0.0-3.0); HEMOGLOBIN 13.3 g/dl (12.0-15.5); LYMPH # 1.9 10^3/uL (1.5-5.0); LYMPH % 26.2 % (24.0-44.0); MEAN CORPUSCULAR HEMOGLOBIN 31.1 pg (27.0-33.0); MEAN CORPUSCULAR HGB CONC 33.3 g/dl (32.0-36.5); MEAN CORPUSCULAR VOLUME 93.5 fl (80.0-96.0); MONO # 0.4 10^3/uL (0.0-0.8); MONO % 5.2 % (2.0-8.0); NEUTROPHILS # 4.6 10^3/uL (1.5-8.5); NEUTROPHILS % 64.6 % (36.0-66.0); PLATELET COUNT, AUTOMATED 188 10^3/uL (150-450); RED BLOOD COUNT 4.28 10^6/uL (4.00-5.40); WHITE BLOOD COUNT 7.1 10^3/uL (4.0-10.0)
[2023-12-19 13:20] LABS: HEMOGLOBIN A1c 5.7 % (4.0-6.0)
[2023-12-19 13:42] LABS: CHOLESTEROL RISK RATIO 2.35 (<5)
[2023-12-19 13:47] LABS: FERRITIN 122.2 NG/ML (7.3-270.7); FREE T4 1.27 NG/DL (0.89-1.76); THYROID STIMULATING HORMONE 0.552 uIU/ML (0.55-4.78)
== END ==
LOC: M PLALAB 10:26
PROVIDERS: ATTEND Family Medicine
DX: D50.9 Iron deficiency anemia, unspecified (principal); E11.9 Type 2 diabetes mellitus without complications

== ENCOUNTER → 2023-12-19 | Outpatient (REF) | payer MEDICARE | LOC: M SFHCPLAZ 10:15 | PROVIDERS: ATTEND Family Medicine | DX: E11.9 Type 2 diabetes mellitus without complications (principal); D50.9 Iron deficiency anemia, unspecified ==

== ENCOUNTER → 2023-12-27 | Outpatient (CLI) | payer MEDICARE | LOC: M WHC 10:10 | PROVIDERS: ATTEND Family Medicine | DX: M85.851 Other specified disorders of bone density and structure, right thigh (principal); M85.852 Other specified disorders of bone density and structure, left thigh ==

== ENCOUNTER → 2024-03-06 | Outpatient (CLI) | payer MEDICARE ==
[~2024-03-06] MED LIST changes: +ONDA-284 PO; -ONDA8TAB8 PO
== END ==
LOC: M PLARAD 12:05
PROVIDERS: ATTEND Nurse Practitioner Family
DX: C54.1 Malignant neoplasm of endometrium (principal)
CPT/HCPCS: 78815; A9552

== ENCOUNTER → 2024-06-18 | Outpatient (CLI) | payer MEDICARE | LOC: M RAD 07:29 | PROVIDERS: ATTEND Family Medicine | DX: K76.0 Fatty (change of) liver, not elsewhere classified (principal); N18.31 Chronic kidney disease, stage 3a ==

== ENCOUNTER → 2024-06-24 | Outpatient (CLI) | payer MEDICARE ==
[2024-06-24 09:04] LABS: BASO % 0.7 % (0.0-1.0); EOS # 0.3 10^3/uL (0.0-0.5); EOS % 4.7 % (0.0-3.0); HEMATOCRIT 42.5 % (36.0-47.0); HEMOGLOBIN 14.3 g/dl (12.0-15.5); LYMPH # 1.8 10^3/uL (1.5-5.0); LYMPH % 34.1 % (24.0-44.0); MEAN CORPUSCULAR HEMOGLOBIN 29.6 pg (27.0-33.0); MEAN CORPUSCULAR HGB CONC 33.6 g/dl (32.0-36.5); MONO # 0.4 10^3/uL (0.0-0.8); MONO % 7.1 % (2.0-8.0); NEUTROPHILS # 2.8 10^3/uL (1.5-8.5); NEUTROPHILS % 52.8 % (36.0-66.0); PLATELET COUNT, AUTOMATED 218 10^3/uL (150-450); RED BLOOD COUNT 4.83 10^6/uL (4.00-5.40); WHITE BLOOD COUNT 5.3 10^3/uL (4.0-10.0)
[2024-06-24 09:23] LABS: ALBUMIN 3.7 G/DL (3.2-5.2); BILIRUBIN,TOTAL 0.8 MG/DL (0.3-1.2); CALCIUM LEVEL 9.8 MG/DL (8.3-10.6); CREATININE FOR GFR 1.37 MG/DL (0.55-1.30); GLOMERULAR FILTRATION RATE 39.9 (>39); POTASSIUM SERUM 4.6 MMOL/L (3.5-5.1); TOTAL PROTEIN 6.3 G/DL (5.7-8.2)
[2024-06-24 09:25] LABS: FERRITIN 166.7 NG/ML (7.3-270.7); THYROID STIMULATING HORMONE 0.906 uIU/ML (0.55-4.78)
[2024-06-24 09:26] LABS: FREE T4 1.35 NG/DL (0.89-1.76)
[2024-06-24 09:34] LABS: HEMOGLOBIN A1c 5.8 % (4.0-6.0)
== END ==
LOC: M LAB 08:08
PROVIDERS: ATTEND Family Medicine
DX: D50.9 Iron deficiency anemia, unspecified (principal); E11.9 Type 2 diabetes mellitus without complications; N18.31 Chronic kidney disease, stage 3a; I50.32 Chronic diastolic (congestive) heart failure

== ENCOUNTER → 2024-08-09 | Outpatient (CLI) | payer MEDICARE | LOC: M RAD 11:05 | PROVIDERS: ATTEND Internal Medicine Medical Oncology | DX: C54.1 Malignant neoplasm of endometrium (principal) ==

== ENCOUNTER → 2024-10-01 | Outpatient (CLI) | payer MEDICARE | LOC: M WHC 10:35 | PROVIDERS: ATTEND Family Medicine | DX: Z12.31 Encounter for screening mammogram for malignant neoplasm of breast (principal); R92.313 Mammographic fatty tissue density, bilateral breasts ==

== ENCOUNTER → 2024-10-15 | Outpatient (CLI) | payer MEDICARE ==
[2024-10-15 10:48] LABS: BASO % 0.6 % (0.0-1.0); EOS # 0.2 10^3/uL (0.0-0.5); HEMATOCRIT 41.5 % (36.0-47.0); HEMOGLOBIN 13.5 g/dl (12.0-15.5); LYMPH # 1.5 10^3/uL (1.5-5.0); LYMPH % 30.7 % (24.0-44.0); MEAN CORPUSCULAR HEMOGLOBIN 28.8 pg (27.0-33.0); MEAN CORPUSCULAR HGB CONC 32.5 g/dl (32.0-36.5); MEAN CORPUSCULAR VOLUME 88.5 fl (80.0-96.0); MONO # 0.4 10^3/uL (0.0-0.8); MONO % 7.4 % (2.0-8.0); NEUTROPHILS # 2.9 10^3/uL (1.5-8.5); NEUTROPHILS % 57.1 % (36.0-66.0); PLATELET COUNT, AUTOMATED 199 10^3/uL (150-450); RED BLOOD COUNT 4.69 10^6/uL (4.00-5.40)
[2024-10-15 11:05] LABS: HEMOGLOBIN A1c 5.6 % (4.0-6.0)
[2024-10-15 11:21] LABS: ALBUMIN 3.6 G/DL (3.2-5.2); BILIRUBIN,TOTAL 0.5 MG/DL (0.3-1.2); CALCIUM LEVEL 9.6 MG/DL (8.3-10.6); CHOLESTEROL RISK RATIO 2.21 (<5); CREATININE FOR GFR 1.31 MG/DL (0.55-1.30); HDL CHOLESTEROL 51.9 MG/DL (>40); LDL CHOLESTEROL 49.9 MG/DL (<100); MAGNESIUM LEVEL 1.7 MG/DL (1.8-2.4); NON-HDL-C 63.1 MG/DL; POTASSIUM SERUM 4.6 MMOL/L (3.5-5.1); TOTAL PROTEIN 6.3 G/DL (5.7-8.2)
[2024-10-15 11:22] LABS: THYROID STIMULATING HORMONE 0.605 uIU/ML (0.55-4.78)
[2024-10-15 11:23] LABS: FERRITIN 158.8 NG/ML (7.3-270.7); FREE T4 1.33 NG/DL (0.89-1.76)
== END ==
LOC: M LAB 09:30
PROVIDERS: ATTEND Family Medicine
DX: D50.9 Iron deficiency anemia, unspecified (principal); N18.31 Chronic kidney disease, stage 3a; E11.9 Type 2 diabetes mellitus without complications; I50.32 Chronic diastolic (congestive) heart failure; E78.5 Hyperlipidemia, unspecified

== ENCOUNTER 2024-10-19 15:53 | Outpatient (CLI) | payer MEDICARE ==
[~2024-10-19] VITALS: Ht 165.1 cm; Wt 95.0 kg
[2024-10-19 16:05] VITALS: BP 148/78; O2SAT 98
[2024-10-19] MEDS: ZOLEDRONIC ACID 5 MG in IV 1 EA IV ONE (16:38)
== END 2024-10-19 17:15 ==
LOC: M INFU 15:53
PROVIDERS: ATTEND Family Medicine
DX: M85.80 Other specified disorders of bone density and structure, unspecified site (principal); Z88.2 Allergy status to sulfonamides
CPT/HCPCS: 96365; J3489

== ENCOUNTER → 2024-10-25 | Outpatient (CLI) | payer MEDICARE | LOC: M PLAIMG 15:02 | PROVIDERS: ATTEND Physician Assistant Medical | DX: J40 Bronchitis, not specified as acute or chronic (principal) ==

== ENCOUNTER → 2025-04-17 | Outpatient (CLI) | payer MEDICARE ==
[~2025-04-17] MED LIST changes: +MAG100TA PO; +ZOLP10TA11 PO; -ZOLP10TA2 PO
== END ==
LOC: M RAD 15:44
DX: C54.1 Malignant neoplasm of endometrium (principal)

== ENCOUNTER → 2025-06-08 | Outpatient (CLI) | payer MEDICARE ==
[2025-06-08 09:50] LABS: BASO # 0.0 10^3/uL (0.0-0.2); BASO % 0.8 % (0.0-1.0); EOS # 0.3 10^3/uL (0.0-0.5); EOS % 5.8 % (0.0-3.0); LYMPH # 1.6 10^3/uL (1.5-5.0); LYMPH % 32.9 % (24.0-44.0); MONO # 0.4 10^3/uL (0.0-0.8); MONO % 7.2 % (2.0-8.0); NEUTROPHILS # 2.6 10^3/uL (1.5-8.5); NEUTROPHILS % 52.9 % (36.0-66.0); PLATELET COUNT, AUTOMATED 215 10^3/uL (150-450)
[2025-06-08 10:23] LABS: ALT/SGPT 20.0 U/L (7.0-40); AST/SGOT 14.0 U/L (<34); CALCIUM LEVEL 9.3 MG/DL (8.3-10.6); CARBON DIOXIDE LEVEL 31.0 MMOL/L (20-31); CHLORIDE LEVEL 104.0 MMOL/L (98-107); CHOLESTEROL LEVEL 118.0 MG/DL (<200); CHOLESTEROL RISK RATIO 2.54 (<5); CREATININE FOR GFR 1.49 MG/DL (0.55-1.30); GLOMERULAR FILTRATION RATE 36.0 (>39); LDL CHOLESTEROL 54.9 MG/DL (<100); MAGNESIUM LEVEL 1.6 MG/DL (1.8-2.4); NON-HDL-C 71.7 MG/DL; POTASSIUM SERUM 5.0 MMOL/L (3.5-5.1); SODIUM LEVEL 141.0 MMOL/L (136-145); TRIGLYCERIDES LEVEL 84.0 MG/DL (<150)
[2025-06-08 10:33] LABS: PTH INTACT 74.3 PG/ML (18.5-88.0)
[2025-06-08 10:35] LABS: ESTIMATED AVERAGE GLUCOSE 148.0 MG/DL (60-110)
[2025-06-08 10:36] LABS: TOTAL 25(OH) VITAMIN D 78.0 NG/ML (20.0-100.0)
[2025-06-08 10:37] LABS: FREE T4 1.56 NG/DL (0.89-1.76)
[2025-06-08 10:38] LABS: VITAMIN B12 LEVEL 1037.0 PG/ML (211-911)
== END ==
LOC: M LAB 08:49
PROVIDERS: ATTEND Family Medicine
DX: D50.9 Iron deficiency anemia, unspecified (principal); N18.31 Chronic kidney disease, stage 3a; E11.22 Type 2 diabetes mellitus with diabetic chronic kidney disease; E78.5 Hyperlipidemia, unspecified; I50.32 Chronic diastolic (congestive) heart failure; K76.0 Fatty (change of) liver, not elsewhere classified; E55.9 Vitamin D deficiency, unspecified